=== PATIENT | female | born 1990 | race Caucasian/White ===

== ENCOUNTER 2023-08-27 18:50 | Outpatient (CLI) | payer MEDICAID, SELFPAY ==
[2023-08-27 18:12] LABS: Adenovirus,PCR Not Detected (NotDetected); Coronavirus 19, PCR Not Detected (NotDetected); Coronavirus 229E Not Detected (NotDetected); Coronavirus NL63 Not Detected (NotDetected); Coronavirus OC43 Not Detected (NotDetected); Coronovirus HKU1,PCR Not Detected (NotDetected); Human Metapneumovirus Not Detected (NotDetected); Influenza A, PCR Not Detected (NotDetected); Influenza AH1, 2009 Not Detected (NotDetected); Influenza AH1, PCR Not Detected (NotDetected); Influenza AH3,PCR Not Detected (NotDetected); Influenza B, PCR Not Detected (NotDetected); Parainfluenza 1, PCR Not Detected (NotDetected); Parainfluenza 2, PCR Not Detected (NotDetected); Parainfluenza 3, PCR Not Detected (NotDetected); Parainfluenza 4, PCR Not Detected (NotDetected); Respiratory Syncytial Virus Not Detected (NotDetected)
[2023-08-27 20:13] LABS: Rhinovirus/Enterovirus Detected (NotDetected)
== END 2023-08-27 23:59 ==
LOC: LAB.DROPOF 18:50
PROVIDERS: PCP Nurse Practitioner; Visit Provider Nurse Practitioner
DX: J02.9 Acute pharyngitis, unspecified (principal); J06.9 Acute upper respiratory infection, unspecified; B34.1 Enterovirus infection, unspecified; R05.9 Cough, unspecified
CPT/HCPCS: 87632; 87635

== ENCOUNTER 2023-09-19 10:24 | Outpatient (CLI) | payer MEDICAID, SELFPAY ==
[2023-09-19 12:31] LABS: HCG,Quantitative 140890 mIU/ml (0-5.42)
[2023-09-20 10:17] LABS: Progesterone 14.8 ng/mL (.)
== END 2023-09-19 23:59 | disposition home or self-care (01) ==
LOC: LAB 10:24
PROVIDERS: PCP Family Medicine; Visit Provider Obstetrics & Gynecology
DX: N92.6 Irregular menstruation, unspecified (principal); Z32.00 Encounter for pregnancy test, result unknown
CPT/HCPCS: 36415; 84144; 84702

== ENCOUNTER 2023-09-24 10:58 | Outpatient (CLI) | payer MEDICAID, SELFPAY ==
--- NOTE | 2023-09-24 10:59 | US_ITS ---
PROCEDURE: US OB <= 14 WEEKS FETUS CLINICAL INDICATION: New OB dates/heart tones COMPARISON: No exams were available for comparison FINDINGS: Transvaginal sonographic images of the pelvis were obtained. From her last menstrual period she is 8weeks 1day. An intrauterine gestational sac is present without a pole. This correlates to a gestational age of 8weeks 5days. It measures 4.3 cm x 3.1 cm x 52.4 cm. heart tones are absent. Yolk sac is not seen. There are some small hyperechoic echoes within the fluid. Inferiorly there is a small subchorionic hemorrhage seen. The right ovary is seen and appears normal. It has a polycystic appearance. A corpus luteum is seen within the right ovary. The left ovary is seen and appears normal. It has a polycystic appearance. There is trace fluid in the cul-de-sac. IMPRESSION: 1. Intrauterine gestational sac without a pole or heart rate activity. 2. The sac size is consistent with an 8 week 5 days . 3. There is a small subchorionic inferior hemorrhage. 4. Both ovaries are seen and appear polycystic. A corpus luteum is seen in the right ovary. 5. Trace fluid in the cul-de-sac. Dictated by: Francesco Scott MD 09/24/2023 15:02 Fracnesco Scott MD in [place] 09/24/2023 15:02
[2023-09-24 15:52] LABS: HCG,Quantitative 160940 mIU/ml (0-5.42)
[2023-09-27 09:09] LABS: Neisseria gonorrhoeae, NAA Negative (Negative)
== END 2023-09-24 23:59 | disposition home or self-care (01) ==
LOC: RAD 10:59
PROVIDERS: PCP Nurse Practitioner; Visit Provider Obstetrics & Gynecology
DX: O36.80X0 Pregnancy with inconclusive fetal viability, not applicable or unspecified (principal); O26.891 Other specified pregnancy related conditions, first trimester
CPT/HCPCS: 36415; 76801; 84702; 86850; 87086; 87491; 87591

== ENCOUNTER 2023-09-29 13:51 | Outpatient (CLI) | payer MEDICAID, SELFPAY ==
--- NOTE | 2023-09-29 13:51 | US_ITS ---
PROCEDURE: US OB <= 14 WEEKS FETUS CLINICAL INDICATION: repeat ultrasound for viability/dates COMPARISON: US US OB <= 14 WEEKS FETUS from 09/24/2023 FINDINGS: Transvaginal sonographic images of the pelvis were obtained. From her last menstrual period she is 8weeks 6days. An intrauterine gestational sac is present without a pole. There is hyperechoic debris within the gestational sac. There is a small area of subchorionic hemorrhage. This correlates to a gestational age of 8weeks 4days. heart tones are absent. Yolk sac is absent. The right ovary is seen and appears normal. There appears to be a corpus luteum in the right ovary. The left ovary is seen and appears normal. The left ovary appears polycystic. There is no fluid in the cul-de-sac. IMPRESSION: 1. Likely blighted ovum. No fetus is seen today. 2. There is a gestational sac with internal echoes. 3. A small subchorionic hemorrhage is seen. 4. Both ovaries are seen and appear normal. The left ovary appears polycystic. 5. No fluid in the cul-de-sac. Dictated by: Francesco Scott MD 09/29/2023 21:11 Francesco Scott MD in [place] 09/29/2023 21:11
[2023-09-29 15:45] LABS: Basophils # 0.1 K/mm3 (0-0.2); Basophils % 0.6 % (0.1-2.0); Eosinophils # 0.2 K/mm3 (0.0-0.4); Eosinophils % 1.5 % (0.1-12.0); Hematocrit 38.5 % (37.0-47.0); Hemoglobin 12.5 g/dL (12.2-16.2); Lymphocytes # 2.2 K/mm3 (0.7-4.5); Lymphocytes % 20.3 % (10-50); Mean Corpuscular HGB Conc 32.6 g/dL (31.8-35.4); Mean Corpuscular Hemoglobin 31.2 pg (27.0-31.2); Mean Corpuscular Volume 95.9 fl (81-99); Monocytes # 0.4 K/mm3 (0.1-1.0); Monocytes % 4.2 % (1.7-9.3); Neutrophils # 7.8 K/mm3 (1.8-7.8); Neutrophils % 73.5 % (37.0-80.0); Platelet Count 254 K/mm3 (142-424); Red Blood Count 4.01 M/mm3 (4.20-5.40); Red Cell Distribution Width 13.2 % (11.5-17.5); White Blood Count 10.6 K/mm3 (4.8-10.8)
[2023-09-29 16:29] LABS: Alanine Aminotransferase 18 U/L (12-78); Albumin Level 4.3 g/dl (3.5-5.0); Albumin/Globulin Ratio 1.5 (1.1-1.8); Alkaline Phosphatase 54 U/L (38-126); Anion Gap 9.8 mEq/L (5-15); Aspartate Amino Transferase 28 U/L (14-36); Bilirubin,Total 0.4 mg/dl (0.2-1.3); Blood Urea Nitrogen 7 mg/dl (7-17); Calcium 9.3 mg/dl (8.4-10.2); Carbon Dioxide 25 mmol/L (22.0-30.0); Chloride 105 mmol/L (98-107); Estimated Glomerular Filt Rate 142 ml/min (>60); GFR (African American) 172 ML/MIN (>60); Globulin 2.9 g/dL (1.3-3.2); Glucose 96 mg/dl (74-100); Potassium 3.8 mmoL/L (3.5-5.1); Sodium 136 mmol/L (136-145); Total Protein,Serum 7.2 g/dl (6.3-8.2)
[2023-09-29 17:12] LABS: HCG,Quantitative 139160 mIU/ml (0-5.42)
== END 2023-09-29 23:59 | disposition home or self-care (01) ==
PROVIDERS: PCP Nurse Practitioner; Visit Provider Obstetrics & Gynecology
DX: O36.80X0 Pregnancy with inconclusive fetal viability, not applicable or unspecified (principal); Z3A.09 9 weeks gestation of pregnancy; O02.0 Blighted ovum and nonhydatidiform mole
CPT/HCPCS: 36415; 76801; 80053; 84702; 85025; 86850

== ENCOUNTER 2023-10-02 09:39 | Day surgery (SDC) | payer MEDICAID, SELFPAY ==
[2023-10-02] VITALS (9 sets, daily range): BP systolic 100–156; BP diastolic 54–71; PULSE 50–79; RESP 12–18; TEMP 36.1–36.9; O2SAT 98–100; BMI 26.2
--- NOTE | 2023-10-02 10:07 | P.PNANES_ITS ---
[facility] Disclaimer: The information contained in this section may have been updated after the patient was seen, as this information can be updated by other users. Medical History , location unknown Surgical History History of surgery on arm Family History Other No significant family history Social History Smoking Status: Never smoker alcohol intake: never substance use type: denies use current occupational status: employed and unemployed Travel in the last 8 weeks: None [facility] Anesthesia Checklist Patient Identification Patient Identification: Arm Band Structural Data Admitted From: Home Planned Operative Procedure/s: D&C with Sabine Suction Consent for Planned Operative Procedure(s) Verified: Yes Verified Documents: Surgical Consent and History and Physical NPO Status Verified Time NPO: 00:00 Additional verifications Anesthesia Reactions: No Airway Assessment Mallampati Score:: Class II C-Spine Mobility Assessed: Yes TMJ Mobility Assessed: Yes Dentition: Good Dentition Neurological Assessment Level of Consciousness: Awake and Alert Anesthesia Plan Anesthesia Risk discussed: Yes Anesthesia Plan: Verified ASA Class: II Anesthesia Type: General
[2023-10-02] MEDS: ACETAMINOPHEN 500MG TAB 1000 MG PO (10:12)
[2023-10-02] MEDS: LACTATED RINGERS 1000ML 1,000 ML 25 ML IV (10:12)
--- NOTE | 2023-10-02 11:57 | P.PNANES_ITS ---
[facility] Anesthesia Record Part I Anesthesia Record I Intake, IV Amount: 450 Hydration: Adequate Estimated blood loss (mL): 300 Urine output (mL): 0 Blood Products used (#): none Blood Pressure: 119/63 SaO2: 99 Pulse Rate: 79 Airway Patency: Patent Respiratory Rate: 12 Temperature: 97.0 F Patient is:: Awake (Talking) and Stable Stable to PACU at:: 11:56
--- NOTE | 2023-10-02 11:58 | EXP.OP.NOTE ---
Date of procedure: 10/02/23 Pre-op Diagnosis:: 1. Missed 2. Blighted ovum 3. ABO RH: A positive Post-op Diagnosis:: 1. Missed 2. Blighted ovum 3. ABO RH: A positive Procedure performed:: Suction dilation and curettage Surgeon:: Janee Bowling DO Converting Supervisor(s):: N/a LEAD MILITARY ANALYST:: Norma Nichols Anesthesia: GETA Estimated blood loss (mL): 300 Clinical Note:: Mrs Socorro Alvarado is a 33 yo who presents to [facility] for scheduled proecdure. Initial ob visit ultrasound on 09/24/23 demonstrated intrauterine gestational sac without a pole or heart rate activity. The sac size is consistent with an 8 week 5 days . There is a small subchorionic inferior hemorrhage. Beta hcg quant 09/19/23 was 140,890. Repeat ultrasound 09/29/23 demonstrated likely blighted ovum. No fetus is seen today. There is a gestational sac with internal echoes. A small subchorionic hemorrhage is seen. She denies bleeding and cramping/pain. Repeat beta hcg quant on 09/29/23 was 139,160. Her blood tyle is A positive. Operative findings:: On bimanual exam, uterus normal size and shape, midposition measuring about 8 weeks. No adenxal masses palpated. Grossly normal appearing cervix. Operative note:: Risks, benefits and alternatives were discussed with the patient. Risks include but are not limited to bleeding, infection, uterine perforation and VTE. Patient voiced understanding and agreed to proceed. She was wheeled back to the operating room and placed under general anesthesia without difficulty. She was placed in dorsal lithotomy position and prepped and draped in the normal sterile fashion. Straight catheter was used to drain the bladder. A bimanual exam was performed. A weighted Auvard was placed in the vaginal vault. Single tooth tenaculum was placed on anterior lip of the cervix. Uterus sounded to 9. Sequential Kennedy dilators were used to dilate the cervical os. An 7 mm curved greenlandic suction curettage was advanced into the uterine cavity without difficulty and was used to suction contents of the uterus. Following removal of the products of conception, a medium sized sharp curette was advanced into the uterine cavity and was used to scrape the uterine ramon until a gritty texture was noted. At this time, the suction curette was advanced one more time to suction any remaining products of conception and blood. Instruments were removed from the vagina. Tenaculum site was noted to be hemostatic. Patient was awaken from anesthesia without difficulty. Products of conception will be sent to pathology as well as to an outside lab for chromosomal analysis. She was transported to recovery room in stable condition. Patient will be discharged home when awake and ambulating. She was given Doxycycline 200 mg PO x 1 dose in recovery. She was also given instructions to follow-up in the office in 2 weeks. Condition: stable Disposition: same day Specimens:: Products of conception Complications:: None
[2023-10-02] MEDS: MORPHINE 2MG/ML SYRINGE 2 MG IV ×2 (12:10→12:16)
[2023-10-02] MEDS: DOXYCYCLINE HYCL 100 MG TABLET 200 MG PO (12:19)
--- NOTE | 2023-10-03 13:54 | EXP.ANES.II ---
[facility] Anesthesia Record Part II Anesthesia Record Part II Discharge Time: 12:21 Destination: Surgical Day Care (OP Surgery) PACU nurse assessment reviewed?: Yes Patient Condition:: Good Anesthesia Complications:: None Swallowing reflex intact?: Yes Airway Patency: Patent Cyanosis?: No Blood Pressure: 102/54 SaO2: 100 Respiratory Rate: 17 Pulse Rate: 57 Temperature: 97.0 F Mental Status: Alert & Oriented Pain level:: 3 Nausea and/or vomitting:: None Intake, IV Amount: 450 Hydration: Adequate
[2023-10-03 13:56] VITALS: BP 102/54; PULSE 57; RESP 17; TEMP 36.1; O2SAT 100
== END 2023-10-02 12:49 | disposition home or self-care (01) ==
PROVIDERS: PCP Nurse Practitioner; Visit Provider Obstetrics & Gynecology
PROC: (CPT 59820; principal; 2023-10-02 11:30)
DX: O02.0 Blighted ovum and nonhydatidiform mole (principal); Z67.10 Type A blood, Rh positive
CPT/HCPCS: 59820; J2405

== ENCOUNTER 2023-10-30 10:16 | Outpatient (CLI) | payer MEDICAID, SELFPAY ==
[2023-10-30 11:56] LABS: HCG,Quantitative 766 mIU/ml (0-5.42)
== END 2023-10-30 23:59 | disposition home or self-care (01) ==
LOC: LAB 10:16
PROVIDERS: PCP Nurse Practitioner; Visit Provider Obstetrics & Gynecology
DX: O03.9 Complete or unspecified spontaneous abortion without complication (principal)
CPT/HCPCS: 36415; 84702

== ENCOUNTER 2023-11-01 09:29 | Outpatient (CLI) | payer MEDICAID, SELFPAY ==
[2023-11-01 11:23] LABS: HCG,Quantitative 582 mIU/ml (0-5.42)
== END 2023-11-01 23:59 | disposition home or self-care (01) ==
PROVIDERS: PCP Nurse Practitioner; Visit Provider Obstetrics & Gynecology
DX: Z87.59 Personal history of other complications of pregnancy, childbirth and the puerperium (principal)
CPT/HCPCS: 36415; 84702

== ENCOUNTER 2023-11-11 14:46 | Outpatient (CLI) | payer MEDICAID, SELFPAY ==
[2023-11-11 16:38] LABS: HCG,Quantitative 211 mIU/ml (0-5.42)
== END 2023-11-11 23:59 | disposition home or self-care (01) ==
LOC: LAB 14:47
PROVIDERS: PCP Nurse Practitioner; Visit Provider Obstetrics & Gynecology
DX: O02.0 Blighted ovum and nonhydatidiform mole (principal)
CPT/HCPCS: 36415; 84702

== ENCOUNTER 2023-11-19 10:46 | Outpatient (CLI) | payer MEDICAID, SELFPAY ==
[2023-11-19 11:45] LABS: HCG,Quantitative 105 mIU/ml (0-5.42)
== END 2023-11-19 23:59 | disposition home or self-care (01) ==
LOC: LAB 10:46
PROVIDERS: PCP Nurse Practitioner; Visit Provider Obstetrics & Gynecology
DX: O03.9 Complete or unspecified spontaneous abortion without complication (principal)
CPT/HCPCS: 36415; 84702

== ENCOUNTER 2023-12-02 16:20 | Outpatient (CLI) | payer MEDICAID, SELFPAY ==
[2023-12-02 18:39] LABS: HCG,Quantitative 54 mIU/ml (0-5.42)
== END 2023-12-02 23:59 | disposition home or self-care (01) ==
LOC: LAB 16:21
PROVIDERS: PCP Nurse Practitioner; Visit Provider Obstetrics & Gynecology
DX: O02.0 Blighted ovum and nonhydatidiform mole (principal)
CPT/HCPCS: 36415; 84702

== ENCOUNTER 2023-12-23 14:07 | Outpatient (CLI) | payer MEDICAID, SELFPAY ==
[2023-12-23 14:56] LABS: HCG,Quantitative 29 mIU/ml (0-5.42)
== END 2023-12-23 23:59 | disposition home or self-care (01) ==
PROVIDERS: PCP Nurse Practitioner; Visit Provider Obstetrics & Gynecology
DX: O02.0 Blighted ovum and nonhydatidiform mole (principal)
CPT/HCPCS: 36415; 84702

== ENCOUNTER 2024-01-07 11:07 | Outpatient (CLI) | payer MEDICAID, SELFPAY ==
[2024-01-07 12:18] LABS: HCG,Quantitative 41 mIU/ml (0-5.42)
== END 2024-01-07 23:59 | disposition home or self-care (01) ==
LOC: LAB 11:07
PROVIDERS: PCP Nurse Practitioner; Visit Provider Obstetrics & Gynecology
DX: Z87.59 Personal history of other complications of pregnancy, childbirth and the puerperium (principal)
CPT/HCPCS: 36415; 84702

== ENCOUNTER 2024-01-09 13:31 | Outpatient (CLI) | payer MEDICAID, SELFPAY ==
[2024-01-09 14:46] LABS: HCG,Quantitative 36 mIU/ml (0-5.42)
== END 2024-01-09 23:59 | disposition home or self-care (01) ==
LOC: LAB 13:31
PROVIDERS: PCP Nurse Practitioner; Visit Provider Obstetrics & Gynecology
DX: O03.9 Complete or unspecified spontaneous abortion without complication (principal); Z87.59 Personal history of other complications of pregnancy, childbirth and the puerperium
CPT/HCPCS: 36415; 84702

== ENCOUNTER 2024-01-16 12:30 | Outpatient (CLI) | payer MEDICAID, SELFPAY ==
[2024-01-16 13:56] LABS: HCG,Quantitative 29 mIU/ml (0-5.42)
== END 2024-01-16 23:59 | disposition home or self-care (01) ==
LOC: LAB 12:31
PROVIDERS: PCP Nurse Practitioner; Visit Provider Obstetrics & Gynecology
DX: O03.9 Complete or unspecified spontaneous abortion without complication (principal)
CPT/HCPCS: 36415; 84702

== ENCOUNTER 2024-01-19 13:33 | Outpatient (CLI) | payer MEDICAID, SELFPAY ==
--- NOTE | 2024-01-19 13:36 | US_ITS ---
PROCEDURE: US TRANSVAGINAL CLINICAL INDICATION: AUB COMPARISON: No exams were available for comparison FINDINGS: Transvaginal sonographic images of the pelvis were obtained. UTERUS: 8.0cm x 5.7 cmx 3.4cm anteverted with a combined endometrial thickness of 4.3mm. LEFT OVARY: 3.1cmx1.9 cmx2.4cm with a volume of 7.6ml. There are multiple small peripheral follicles that appear polycystic. RIGHT OVARY: 3.7 cmx 2.0cmx1.8 cm with a volume of 7ml. There are multiple small follicles and appear polycystic. Both ovaries are seen and appear polycystic. Doppler flow to both ovaries are seen. There is no fluid in the cul-de-sac. IMPRESSION: 1. Anteverted uterus normal in shape and size. The endometrium is thin. 2. Both ovaries are seen and appear polycystic. 3. No fluid in the cul-de-sac. Dictated by: Francesco Scott MD 01/19/2024 15:55 Francesco Scott MD in [place] 01/19/2024 15:55
== END 2024-01-19 23:59 | disposition home or self-care (01) ==
LOC: RAD 13:33
PROVIDERS: PCP Nurse Practitioner; Visit Provider Obstetrics & Gynecology
DX: N93.9 Abnormal uterine and vaginal bleeding, unspecified (principal)
CPT/HCPCS: 76830

== ENCOUNTER 2024-03-18 10:12 | Outpatient (CLI) | payer MEDICAID, SELFPAY ==
[2024-03-18 11:56] LABS: HCG,Quantitative 6760 mIU/ml (0-5.42)
[2024-03-19 12:14] LABS: Progesterone 11.9 ng/mL (.)
== END 2024-03-18 23:59 | disposition home or self-care (01) ==
LOC: LAB 10:12
PROVIDERS: PCP Nurse Practitioner; Visit Provider Obstetrics & Gynecology
DX: Z34.90 Encounter for supervision of normal pregnancy, unspecified, unspecified trimester (principal)
CPT/HCPCS: 84144; 84702

== ENCOUNTER 2024-03-23 13:14 | Outpatient (CLI) | payer MEDICAID, SELFPAY ==
[2024-03-23 15:54] LABS: HCG,Quantitative 26267 mIU/ml (0-5.42)
== END 2024-03-23 23:59 | disposition home or self-care (01) ==
LOC: LAB 13:15
PROVIDERS: PCP Nurse Practitioner; Visit Provider Obstetrics & Gynecology
DX: O02.0 Blighted ovum and nonhydatidiform mole (principal)
CPT/HCPCS: 36415; 84702

== ENCOUNTER 2024-03-30 10:43 | Outpatient (CLI) | payer SELFPAY ==
[2024-03-30 11:18] LABS: Basophils % 0.4 % (0.1-2.0); Eosinophils # 0.2 K/mm3 (0.0-0.4); Eosinophils % 1.9 % (0.1-12.0); Hematocrit 37.4 % (37.0-47.0); Hemoglobin 12.9 g/dL (12.2-16.2); Lymphocytes # 1.7 K/mm3 (0.7-4.5); Mean Corpuscular HGB Conc 34.6 g/dL (31.8-35.4); Mean Corpuscular Hemoglobin 31.4 pg (27.0-31.2); Monocytes # 0.5 K/mm3 (0.1-1.0); Neutrophils % 74.7 % (37.0-80.0); Platelet Count 242 K/mm3 (142-424); Red Blood Count 4.11 M/mm3 (4.20-5.40); Red Cell Distribution Width 12.9 % (11.5-17.5); White Blood Count 9.3 K/mm3 (4.8-10.8)
[2024-03-30 13:19] LABS: HIV (1&2) Antibody Rapid NONREACTIVE (NONREACTIVE)
[2024-03-31 09:20] LABS: HCV Ab Non Reactive (Non Reactive); Hepatitis B Surface Antigen Negative (Negative)
[2024-03-31 10:20] LABS: Rubella Antibodies, IgG 2.45 index (Immune >0.99)
[2024-03-31 13:41] LABS: Rapid Plasma Reagin Ab Titer Non Reactive titer (NonRea<1:1)
== END 2024-03-30 23:59 | disposition home or self-care (01) ==
LOC: LAB 10:44
PROVIDERS: PCP Nurse Practitioner; Visit Provider Obstetrics & Gynecology
DX: Z34.90 Encounter for supervision of normal pregnancy, unspecified, unspecified trimester (principal)
CPT/HCPCS: 36415; 85025; 86593; 86762; 86803; 86850; 87086; 87340; 87389

== ENCOUNTER 2024-06-08 12:20 | Outpatient (CLI) | payer MEDICAID, SELFPAY ==
[2024-06-08 12:35] VITALS: BP 127/69; PULSE 93; RESP 18; TEMP 36.9; O2SAT 98; BMI 32.4
== END 2024-06-08 13:40 | disposition home or self-care (01) ==
LOC: OBOUT 12:22 → OB 12:22
PROVIDERS: PCP Nurse Practitioner; Visit Provider Obstetrics & Gynecology
DX: O16.2 Unspecified maternal hypertension, second trimester (principal); Z3A.17 17 weeks gestation of pregnancy; R51.9 Headache, unspecified
CPT/HCPCS: G0463

== ENCOUNTER 2024-06-24 10:30 | Outpatient (CLI) | payer MEDICAID, SELFPAY ==
[2024-06-24 10:51] LABS: Basophils % 0.2 % (0.1-2.0); Eosinophils # 0.1 K/mm3 (0.0-0.4); Eosinophils % 1.1 % (0.1-12.0); Hematocrit 31.9 % (37.0-47.0); Hemoglobin 10.7 g/dL (12.2-16.2); Lymphocytes # 1.8 K/mm3 (0.7-4.5); Lymphocytes % 14.3 % (10-50); Mean Corpuscular HGB Conc 33.5 g/dL (31.8-35.4); Mean Corpuscular Volume 89.4 fl (81-99); Mean Platelet Volume 9.9 fl (7.4-10.4); Monocytes # 0.8 K/mm3 (0.1-1.0); Monocytes % 6.4 % (1.7-9.3); Neutrophils # 9.8 K/mm3 (1.8-7.8); Neutrophils % 77.4 % (37.0-80.0); Platelet Count 228 K/mm3 (142-424); Red Blood Count 3.57 M/mm3 (4.20-5.40); Red Cell Distribution Width 12.5 % (11.5-17.5); White Blood Count 12.7 K/mm3 (4.8-10.8)
[2024-06-24 11:16] LABS: Albumin Level 3.6 g/dl (3.5-5.0); Chloride 104 mmol/L (98-107); Sodium 132 mmol/L (136-145)
[2024-06-24 11:19] LABS: Alanine Aminotransferase 24 U/L (12-78); Aspartate Amino Transferase 29 U/L (14-36); Bilirubin,Unconjugated 0.2 mg/dL (0.0-1.1); Blood Urea Nitrogen 7 mg/dl (7-17); Carbon Dioxide 24 mmol/L (22.0-30.0); Estimated Glomerular Filt Rate 142 ml/min (>60); GFR (African American) 172 ML/MIN (>60); Total Protein,Serum 6.2 g/dl (6.3-8.2)
[2024-06-24 11:20] LABS: Alkaline Phosphatase 75 U/L (38-126); Bilirubin,Indirect 0.2 mg/dL (0.0-0.9); Bilirubin,Total 0.2 mg/dl (0.2-1.3); Calcium 9.7 mg/dl (8.4-10.2); Chol/HDL Ratio 2.8 (1-3.5); Cholesterol 153 mg/dl (140-200); Glucose 81 mg/dl (74-100); HDL Cholesterol 54 mg/dl (40-60); Triglycerides 200 mg/dl (30-150); VLDL Cholesterol 40 mg/dL (0-40)
[2024-06-24 11:31] LABS: Direct LDL Cholesterol 70.62 mg/dL (100-129)
[2024-06-24 11:38] LABS: Free T4 (Free Thyroxine) 0.65 ng/dl (0.78-2.19)
[2024-06-24 11:53] LABS: Thyroid Stimulating Hormone 0.04 uIU/mL (0.465-4.68)
== END 2024-06-24 23:59 | disposition home or self-care (01) ==
PROVIDERS: PCP Nurse Practitioner; Visit Provider Physician Assistant
DX: O13.9 Gestational [pregnancy-induced] hypertension without significant proteinuria, unspecified trimester (principal)
CPT/HCPCS: 36415; 80048; 80061; 80076; 84439; 84443; 85025

== ENCOUNTER 2024-07-01 13:10 | Outpatient (CLI) | payer MEDICAID, SELFPAY ==
--- NOTE | 2024-07-01 13:10 | US_ITS ---
PROCEDURE: US OB >= 14 WEEKS FETUS CLINICAL INDICATION: anatomy scan COMPARISON: US US OB <= 14 WEEKS FETUS from 09/29/2023 US US TRANSVAGINAL from 01/19/2024 FINDINGS: Transabdominal sonographic images of the pelvis were obtained. From her established due date she is 20 weeks 2 days. Single viable intrauterine gestation. Cephalic position. Placenta: Fundalplacenta grade 1. A placental Pack is present. There is an average amount of fluid. The cervix appears satisfactory. Closed and measuring 4.58 cm in length. Complete survey performed and was unremarkable on the submitted images as in PACS. No discrete anomalies identified on survey imaging by technologist. Active fetus. Three-vessel cord with satisfactory umbilical cord insertion. 4- chamber heart noted. Situs, aortic arch, LVOT, RVOT, three-vessel view appear normal. Survey of brain & ventricles Unremarkable. Cerebellum, thalamus, choroid plexus, cisterna magna appear normal. Face and neck survey unremarkable. Profile, nasion, lips and nose appeared normal. Diaphragm and chest views unremarkable. Abdomen: Both kidneys noted and unremarkable. Stomach and bladder noted and satisfactory. Spine: Survey of the spine satisfactory with no anomalies identified nor imaged. Cervical, thoracic, lower spine appear normal. Both arms and legs noted. Amniotic Fluid: Adequate. MVP 5.08 cm Measurements: Average ultrasound age 20weeks 6days. Estimated due date by ultrasound age 0611/12/2024. Estimated weight 359g BPD = 21weeks 4days HC = 20weeks 5days AC = 20weeks 6days FL = 20weeks 0 days Growth Percentile= 59 Heart Rate = 146bpm Cerebellum = 20weeks 6days Humerus = 20weeks 2days HC/AC is 1.17 FL/BPD is 0.63 FL/AC is 0.2 IMPRESSION: 1. Viable fetus within the uterine cavity. heart rate activity is present. 2. The fluid is within normal limits with an MVP 5.08 cm. 3. Somewhat difficult exam due to position. 4. Anatomical scan appears normal. 5. There is a 2 mm intracardiac echogenic focus. Suggest repeat scan at 28 weeks. 6. biometry is consistent with the dates. Dictated by: Francesco Scott MD 07/02/2024 10:33 Francesco Scott MD in [place] 07/02/2024 10:33
== END 2024-07-01 23:59 | disposition home or self-care (01) ==
LOC: RAD 13:10
PROVIDERS: PCP Obstetrics & Gynecology; Visit Provider Obstetrics & Gynecology
DX: Z34.92 Encounter for supervision of normal pregnancy, unspecified, second trimester (principal); Z3A.20 20 weeks gestation of pregnancy; Z87.59 Personal history of other complications of pregnancy, childbirth and the puerperium
CPT/HCPCS: 76805

== ENCOUNTER 2024-07-02 13:08 | Outpatient (CLI) | payer MEDICAID, SELFPAY ==
--- NOTE | 2024-07-02 13:09 | US_ITS ---
FINAL REPORT CLINICAL HISTORY: abnormal tsh COMPARISON: None FINDINGS: THYROID ULTRASOUND: The right lobe of the thyroid measures 4.7 x 1.8 x 2 cm in size. No focal mass or nodule is present in the right lobe of the thyroid gland. The gland is homogeneous in appearance. The left lobe of the thyroid gland measures 4.7 x 1.7 x 1.8 cm in size. There is a single nodule in the lower pole, measuring 1 cm in diameter, solid, hypoechoic, a TI-RADS category 4 nodule. The isthmus of the thyroid measures 2 mm in thickness. IMPRESSION: 1 cm nodule, TI-RADS category 4, and the left lobe of the thyroid gland. Recommend 1 year follow-up thyroid ultrasound for further evaluation. Reviewed, Interpreted and Dictated by Samir Adams MD Transcribed by Sun Soriano Authenticated and [facility]
--- NOTE | 2024-07-02 13:09 | US_ITS ---
FINAL REPORT TECHNIQUE: Ultrasound images of the kidneys and bladder were obtained. CLINICAL HISTORY: R94.31 - Abnormal electrocardiogram ECG EKG COMPARISON: None FINDINGS: The right kidney measures 12.3 cm in length. It is normal in echogenicity. There is no hydronephrosis. The left kidney measures 12.1 cm in length. It is normal in echogenicity. There is no hydronephrosis. There is a small hypoechoic focus present in the left kidney measuring 1.4 cm in size, consistent with a renal cyst. IMPRESSION: 1.4 cm left renal cyst, otherwise unremarkable bilateral renal ultrasound. Reviewed, Interpreted and Dictated by Samir Adams MD Transcribed by Sun Soriano Authenticated and [facility]
--- NOTE | 2024-07-02 13:31 | CA_ITS ---
APPROVED REPORT EXAM: Comprehensive 2D, Doppler, and color-flow Echocardiogram Diplomatic Officer: Safia Kepm CRT Ht: 5 ft 0 in Wt: 192lbs BSA: 1.83 BP: 118/65 mmHg Indications: Abnormal ECG, Hypertension/HDD, 21 weeks , smoker 2D Dimensions LA Volume 41.50 mL LA Volume Index 22.10 mL/m2 (M/F) 16-34 M-Mode Dimensions RVDd 1.86 cm (0.9-2.6) LA Diam 3.73 cm (1.9-4.0) LVDd 5.11 cm (3.5-5.7) LVDs 3.18 cm (3.5-5.7) IVSd 1.30 cm (0.6-1.1) PWd 1.00 cm (0.6-1.1) EF (Teich) 67.60% FS 37.80% EDV (Teich) 124.40 mL TAPSE 1.75 (<1.7) ESV (Teich) 40.30 mL LV Diastology E Decel Time 143 (160-240 msec) E/A Ratio 1.33 MED A' 10.50 cm/s LAT A' 9.20 cm/s Aortic Valve AO Peak GR. 11.10 mmHg Mitral Valve MV E Max Willi. 113.0 (40-130 cm/s) MV A Velocity 85.0 (40-130 cm/s) E/A Ratio 1.33 MV PHT 42.0 ms Pulmonary Valve PV Peak Velocity 114.0 (50-150 cm/s) Tricuspid Valve TR P. Velocity 289.00 cm/s RAP Estimate 10.00 mmHg RVSP 43.50 mmHg Left Ventricle The left ventricle is normal size. The left ventricular systolic function is normal. The left ventricular ejection fraction is within the normal range. There is normal left ventricular wall thickness. There is normal LV segmental wall motion. The left ventricular diastolic function is normal. LVEF is 55%. Right Ventricle Right ventricle is mildly dilated. The right ventricular systolic function is normal. Atria The left atrium is mildly dilated. The right atrium is mildly dilated. There is no Doppler evidence of interatrial shunt. Aortic Valve The aortic valve is normal in structure. There is no aortic valvular stenosis. No aortic regurgitation is present. Mitral Valve The mitral valve is normal in structure. No evidence of mitral valve stenosis. Trace mitral regurgitation. Tricuspid Valve Tricuspid valve is grossly normal in structure and function. Trace tricuspid regurgitation. There is insufficient TR jet to estimate RVSP. Pulmonic Valve The pulmonary valve is normal in structure. Trace pulmonic regurgitation. Great Vessels The aortic root is normal in size. The ascending aorta is normal in size. IVC is normal in size and collapses >50% with inspiration. Pericardium There is no pericardial effusion. Other Information Study Quality: Fair Conclusion Normal biventricular systolic function. Mild RV dilation. Mild biatrial dilation. No significant valvular stenosis or regurgitation. Electronically signed by : Hyun Oswald MD 07/10/2024 23:47:43
== END 2024-07-02 23:59 | disposition home or self-care (01) ==
LOC: RAD 13:09
PROVIDERS: PCP Nurse Practitioner; Visit Provider Physician Assistant
DX: O13.9 Gestational [pregnancy-induced] hypertension without significant proteinuria, unspecified trimester (principal); R79.89 Other specified abnormal findings of blood chemistry; R94.31 Abnormal electrocardiogram [ECG] [EKG]
CPT/HCPCS: 76536; 76770; 93306

== ENCOUNTER 2024-08-17 12:22 | Outpatient (CLI) | payer MEDICAID, SELFPAY ==
[2024-08-17 12:38] VITALS: BMI 36.5
[2024-08-17 13:07] LABS: Basophils % 0.1 % (0.1-2.0); Eosinophils % 0.2 % (0.1-12.0); Hematocrit 30.8 % (37.0-47.0); Hemoglobin 10.5 g/dL (12.2-16.2); Lymphocytes # 0.5 K/mm3 (0.7-4.5); Lymphocytes % 3.9 % (10-50); Mean Corpuscular HGB Conc 34.1 g/dL (31.8-35.4); Mean Corpuscular Hemoglobin 30.6 pg (27.0-31.2); Mean Corpuscular Volume 89.8 fl (81-99); Mean Platelet Volume 9.8 fl (7.4-10.4); Monocytes # 0.3 K/mm3 (0.1-1.0); Monocytes % 2.3 % (1.7-9.3); Neutrophils # 11.1 K/mm3 (1.8-7.8); Neutrophils % 92.7 % (37.0-80.0); Platelet Count 235 K/mm3 (142-424); Red Blood Count 3.43 M/mm3 (4.20-5.40); Red Cell Distribution Width 13.4 % (11.5-17.5)
[2024-08-17 13:08] LABS: MANUAL DIFFERENTIAL MANUAL DIFFERENTIAL (MANUAL DIFF)
--- NOTE | 2024-08-17 13:10 | US_ITS ---
PROCEDURE: US OB FOLLOW UP CLINICAL INDICATION: abdominal trauma COMPARISON: US US OB >= 14 WEEKS FETUS from 07/01/2024 FINDINGS: Transabdominal sonographic images of the pelvis were obtained. The following parameters are obtained: From her established due date she is 27weeks 27 weeks 0 days Viable fetus in the breech presentation with a fundal placenta grade 1. The cervix measures 3.28 cm. heart rate: 153bpm bpm. Amniotic fluid: MVP 5.21 cm. No obvious anomalies evident. profile seen, spine, kidneys, three-vessel cord, lips and nose, four chamber heart appear normal. The small echogenic foci is still seen within the left ventricle of the heart. Cardiac views otherwise appear normal. IMPRESSION: 1. Viable fetus in the breech presentation with a fundal placenta grade 1. 2. The fluid is within normal limits with an MVP 5.21 cm. 3. Careful scanning of the fundal placenta does not reveal any evidence of abruption. Fetus is active. 4. Limited anatomical scan appears normal. 5. There continues to be a small intracardiac echogenic foci in the left ventricle. Dictated by: Francesco Scott MD 08/17/2024 14:57 Francesco Scott MD in [place] 08/17/2024 14:57
[2024-08-17 13:23] LABS: Alanine Aminotransferase 20 U/L (12-78); Albumin Level 3.7 g/dl (3.5-5.0); Albumin/Globulin Ratio 1.4 (1.1-1.8); Alkaline Phosphatase 96 U/L (38-126); Amylase 56 U/L (30-110); Anion Gap 10.4 mEq/L (5-15); Aspartate Amino Transferase 24 U/L (14-36); Bilirubin,Total 0.3 mg/dl (0.2-1.3); Blood Urea Nitrogen 9 mg/dl (7-17); Calcium 8.5 mg/dl (8.4-10.2); Carbon Dioxide 21 mmol/L (22.0-30.0); Chloride 108 mmol/L (98-107); Creatinine Clearance Estimated 295 mL/min (50-200); Estimated Glomerular Filt Rate 184 ml/min (>60); GFR (African American) 222 ML/MIN (>60); Globulin 2.7 g/dL (1.3-3.2); Glucose 109 mg/dl (74-100); Lipase 51 U/L (23-300); Potassium 3.4 mmoL/L (3.5-5.1); Sodium 136 mmol/L (136-145); Total Protein,Serum 6.4 g/dl (6.3-8.2)
[2024-08-17] MEDS: ONDANSETRON 4MG/2ML VIAL 4 MG IV (13:30)
[2024-08-17] MEDS: LACTATED RINGERS 1000ML 1,000 ML 999 ML IV (13:30)
[2024-08-17 13:31] VITALS: BMI 36.5
[2024-08-17 13:35] LABS: Lymphocytes % 4 % (10-50); Monocytes % 3 % (2-9); Neutrophils % 93 % (42-76); Total Cells Counted 100
[2024-08-17 13:36] LABS: Platelet Estimate Normal; RBC Morphology Normal
== END 2024-08-17 14:53 | disposition home or self-care (01) ==
LOC: OBOUT 12:23 → OB 12:24
PROVIDERS: Obstetrics & Gynecology; PCP Nurse Practitioner; Visit Provider Obstetrics & Gynecology
DX: Z04.3 Encounter for examination and observation following other accident (principal); Z3A.27 27 weeks gestation of pregnancy
CPT/HCPCS: 76816; 80053; 82150; 83690; 85007; 85025; 85027; G0463; J2405; J7120

== ENCOUNTER 2024-08-30 09:12 | Outpatient (CLI) | payer MEDICAID, SELFPAY ==
--- NOTE | 2024-08-30 09:12 | US_ITS ---
PROCEDURE: US OB FOLLOW UP CLINICAL INDICATION: 2 mm intracardiac echogenic focus, growth TRELL COMPARISON: US US TRANSVAGINAL from 01/19/2024 US US OB >= 14 WEEKS FETUS from 07/01/2024 US US OB FOLLOW UP from 08/17/2024 FINDINGS: Transabdominal sonographic images of the pelvis were obtained. The following parameters are obtained: From her established due date she is 30 weeks 1 day Viable fetus in the breech presentation with a posterior placenta grade 1. The cervix measures 3.3 cm. Estimated weight 1381 grams, 3 lb 1 oz Average ultrasound age 29 weeks 3 days heart rate: 143bpm bpm. BPD: 29 weeks 0 days, 9 percentile HC: 30 weeks 2 days, 18 percentile AC: 30 weeks 2 days, 49 percentile FL: 27 weeks 5 days, < 2 percentile HC/AC: 1.06 FL/BPD: 0.72 FL/AC: 0.2 Growth percentile: 15 Amniotic fluid index: 12.29cm, MVP 3.76 cm. No obvious anomalies evident. profile seen, stomach, bladder, kidneys, three-vessel cord, four chamber heart appear normal. There continues to be a small intracardiac echogenic foci within the left ventricle. It has not increased in size. IMPRESSION: 1. Viable fetus in the breech presentation with a posterior placenta grade 1. 2. The fluid is within normal limits with an amniotic fluid index 12.29 cm, MVP 3.76 cm. 3. There has been good interval growth with the fetus currently 15th percentile. The femur length is over 2 weeks behind. 4. Limited anatomical scan appears normal. 5. There continues to be a small intracardiac echogenic foci in the left ventricle that has not increased in size. Dictated by: Francesco Scott MD 08/30/2024 11:21 Francesco Scott MD in [place] 08/30/2024 11:21
[2024-08-30 11:22] LABS: Basophils % 0.2 % (0.1-2.0); Eosinophils # 0.1 K/mm3 (0.0-0.4); Eosinophils % 0.8 % (0.1-12.0); Hematocrit 29.7 % (37.0-47.0); Lymphocytes # 1.6 K/mm3 (0.7-4.5); Lymphocytes % 11.9 % (10-50); Mean Corpuscular HGB Conc 33.7 g/dL (31.8-35.4); Mean Corpuscular Hemoglobin 30.6 pg (27.0-31.2); Mean Corpuscular Volume 90.8 fl (81-99); Monocytes # 0.6 K/mm3 (0.1-1.0); Monocytes % 4.3 % (1.7-9.3); Neutrophils # 10.9 K/mm3 (1.8-7.8); Neutrophils % 81.7 % (37.0-80.0); Platelet Count 259 K/mm3 (142-424); Red Blood Count 3.27 M/mm3 (4.20-5.40); Red Cell Distribution Width 13.1 % (11.5-17.5); White Blood Count 13.3 K/mm3 (4.8-10.8)
[2024-08-30 11:34] LABS: Glucose 1 Hour 155 mg/dL (74-100)
[2024-08-30 12:09] LABS: Free Thyroxine Index 2.4 ug/dL (5.93-13.13); T4 (Thyroxine) 13.2 ug/dl (5.53-11.0); Triiodothryronine (T3) Uptake 18 % (23.5-40.5)
[2024-08-30 12:22] LABS: Thyroid Stimulating Hormone 0.13 uIU/mL (0.465-4.68)
[2024-08-31 09:42] LABS: RPR W/RFX Titers Nonreactive (Nonreactive)
== END 2024-08-30 23:59 | disposition home or self-care (01) ==
PROVIDERS: PCP Nurse Practitioner; Visit Provider Obstetrics & Gynecology
DX: O13.3 Gestational [pregnancy-induced] hypertension without significant proteinuria, third trimester (principal); O28.3 Abnormal ultrasonic finding on antenatal screening of mother; R79.89 Other specified abnormal findings of blood chemistry; Z3A.30 30 weeks gestation of pregnancy
CPT/HCPCS: 36415; 76816; 82947; 84436; 84443; 84479; 85025; 86592

== ENCOUNTER 2024-09-15 08:27 | Outpatient (CLI) | payer MEDICAID, SELFPAY ==
[2024-09-15 09:03] LABS: Glucose,Fasting 97 mg/dl (74-100)
[2024-09-15 12:44] LABS: Glucose 1 Hour 161 mg/dL (74-100); Glucose 2 Hour 93 mg/dL (74-100)
[2024-09-15 12:45] LABS: Glucose 3 Hour 84 mg/dL (74-100)
== END 2024-09-15 23:59 | disposition home or self-care (01) ==
PROVIDERS: PCP Nurse Practitioner; Visit Provider Obstetrics & Gynecology
DX: E74.39 Other disorders of intestinal carbohydrate absorption (principal)
CPT/HCPCS: 36415; 82951

== ENCOUNTER 2024-09-27 14:35 | Outpatient (CLI) | payer MEDICAID, SELFPAY ==
--- NOTE | 2024-09-27 15:00 | US_ITS ---
PROCEDURE: US OB BIOPHYSICAL PROFILE CLINICAL INDICATION: SGA COMPARISON: US US TRANSVAGINAL from 01/19/2024 US US OB >= 14 WEEKS FETUS from 07/01/2024 US US OB FOLLOW UP from 08/17/2024 US US OB FOLLOW UP from 08/30/2024 FINDINGS: Transabdominal sonographic images of the uterus were obtained. From her established due date she is 34weeks 1day. The following parameters are obtained: Viable Fetus in the breech presentation with a posterior placenta grade 2. Average ultrasound age is 33weeks 4days Estimated weight 2,151g, 4 lb 12 oz The cervix measures 2.09-2.64 cm transvaginally. There is no funneling with Valsalva. Measurements: heart Rate = 130bpm BPD = 33weeks 2days, 23 percentile HC = 34weeks 5days, 27 percentile AC = 33weeks 1day, 23 percentile FL = 33weeks 1day, 16 percentile HC/AC is 1.07 FL/BPD is 0.78 FL/AC is 0.22 20 percentile Amniotic fluid index: 11.25cm, MVP 3.68 cm Qualitative AFV:2 Breathing movements: 2 Gross Body Movements: 2 Tone: 2 Biophysical profile score: 8 Doppler evaluation of the umbilical artery: SD ratio: 2.75-3.2 Resistive index: 0.69 No obvious anomalies evident.Kidneys, profile, stomach, bladder, four-chamber heart, three-vessel cord appear normal. There continues to be a small echogenic foci within the left ventricle. IMPRESSION: 1. Viable fetus in the BREECH presentation with a posterior placenta grade 2. 2. The fluid is within normal limits with an amniotic fluid index 11.25 cm, MVP 3.68 cm. 3. Biophysical profile is 8/8 with good breathing movement and movement seen. 4. SD ratio is normal 2.75-3.20. 5. There has been good interval growth with the fetus currently 20th percentile. 6. There continues to be a small intracardiac echogenic foci within the left ventricle of the heart. 7. The rest of the limited anatomical scan appears normal. Dictated by: Francesco Scott MD 09/27/2024 18:13 Francesco Scott MD in [place] 09/27/2024 18:13
== END 2024-09-27 23:59 | disposition home or self-care (01) ==
LOC: RAD 14:36
PROVIDERS: PCP Nurse Practitioner; Visit Provider Obstetrics & Gynecology
DX: O36.5930 Maternal care for other known or suspected poor fetal growth, third trimester, not applicable or unspecified (principal); Z87.59 Personal history of other complications of pregnancy, childbirth and the puerperium; Z3A.34 34 weeks gestation of pregnancy
CPT/HCPCS: 76816; 76819; 76820

== ENCOUNTER 2024-10-12 15:41 | Outpatient (CLI) | payer MEDICAID, SELFPAY ==
[2024-10-12 15:50] VITALS: BMI 38.0
[2024-10-12 16:02] VITALS: BP 135/72; PULSE 90; RESP 17; TEMP 36.7; O2SAT 99; BMI 38.0
[2024-10-12 16:14] LABS: Microscopic, Urine URINE MICROSCOPIC (MICROSCOPIC)
[2024-10-12 16:17] LABS: Appearance,Urine CLEAR (Clear); Bilirubin,Urine Negative (Negative); Blood, Urine Negative (Negative); Color,Urine YELLOW (Yellow); Glucose,Urine (UA) Negative (Negative); Ketones,Urine Negative (Negative); Leukocyte Esterase,Urine TRACE (Negative); Nitrate,Urine Negative (Negative); Protein,Urine Negative (Negative); Specific Gravity, Urine 1.015 (1.005-1.030); Urobilinogen,Urine 0.2 EU/dl (0.2)
--- NOTE | 2024-10-12 16:17 | US_ITS ---
PROCEDURE INFORMATION: Exam: US , Limited Exam date and time: 10/12/2024 4:23 PM Age: 34 years old Clinical indication: Other: Dec movement, back pain; ; Additional info: Decreased movement, positioning LABS AND CLINICAL REPORTS: Gestational age (Established): 36 w 2 d Estimated due date (Established): 11/07/2024 TECHNIQUE: Imaging protocol: Real-time ultrasound of the maternal uterus with image documentation. Exam focused on the clinical indication. COMPARISON: US OB BIOPHYSICAL PROFILE 09/27/2024 2:44 PM FINDINGS: Gestation: Single intrauterine gestation. heart rate: 136 bpm presentation and position: Breech. Placenta: Fundal location. Grade 2. No retroplacental hemorrhage. Amniotic fluid index: 10.74 cm. MATERNAL: Cervix: Measures 2.79 cm in length. IMPRESSION: Single live intrauterine gestation in breech presentation. PROCEDURE INFORMATION: Exam: US Biophysical Profile Without Non-Stress Test Exam date and time: 10/12/2024 4:23 PM Age: 34 years old Clinical indication: Other: Dec movement, back pain; ; Additional info: Decreased movement, positioning TECHNIQUE: Imaging protocol: US biophysical profile without non-stress testing. COMPARISON: US OB BIOPHYSICAL PROFILE 09/27/2024 2:44 PM FINDINGS: BIOPHYSICAL PROFILE: breathing (BPP): 2 out of 2. gross body movement (BPP): 0 out of 2. tone (BPP): 2 out of 2. Amniotic fluid (BPP): 2 out of 2. IMPRESSION: Biophysical profile score is 6 out of 8 with abnormal scoring of gross body movement, in which only 1 episode was detected.
[2024-10-12 16:52] LABS: Bacteria,Urine 4+ /lpf; Squamous Epithelial Cell,Urine 50-100 #/hpf (0-5)
[2024-10-12] MEDS: LACTATED RINGERS 1000ML 1,000 ML 999 ML IV (20:58)
[2024-10-12] MEDS: AZITHROMYCIN 250MG TABLET 1000 MG PO (23:00)
== END 2024-10-12 23:34 | disposition home or self-care (01) ==
LOC: OBOUT 15:42 → OB 15:43
PROVIDERS: PCP Nurse Practitioner; Visit Provider Obstetrics & Gynecology
DX: O99.891 Other specified diseases and conditions complicating pregnancy (principal); M54.50 Low back pain, unspecified; Z3A.35 35 weeks gestation of pregnancy
CPT/HCPCS: 76819; 81001; 86403; 87086; G0463; J7120

== ENCOUNTER 2024-10-13 12:55 | Outpatient (CLI) | payer MEDICAID, SELFPAY ==
--- NOTE | 2024-10-13 12:30 | US_ITS ---
PROCEDURE: US OB BIOPHYSICAL PROFILE CLINICAL INDICATION: Needs ALLAN for SGA COMPARISON: US US OB >= 14 WEEKS FETUS from 07/01/2024 US US OB FOLLOW UP from 08/17/2024 US OB FOLLOW UP from 08/30/2024 US OB BIOPHYSICAL PROFILE from 09/27/2024 US OB BPP W/FET-MAT S/D from 10/12/2024 FINDINGS: Transabdominal sonographic images of the uterus were obtained. From her established due date she is 36weeks 3days. The following parameters are obtained: Viable Fetus in the breech presentation with right lateral placenta grade 2. The cervix measures 2.44 cm Measurements: heart Rate = 146bpm Amniotic fluid index: 15.73cm, MVP 5.29 cm Qualitative AFV:2 Breathing movements: 2 Gross Body Movements: 2 Tone: 2 Biophysical profile score: 8 No obvious anomalies evident.Kidneys, bladder, stomach, four-chamber heart, three-vessel cord appear normal. IMPRESSION: 1. Viable fetus in the BREECH presentation with a right lateral placenta grade 2. 2. The fluid is within normal limits with an amniotic fluid index 15.73 cm, MVP 5.29 cm. 3. Biophysical profile is 8/8 with good breathing movement and movement seen. 4. Limited anatomical scan appears normal. Dictated by: Francesco Scott MD 10/13/2024 15:28 Francesoc Scott MD in [place] 10/13/2024 15:28
== END 2024-10-13 23:59 | disposition home or self-care (01) ==
LOC: RAD 12:56
PROVIDERS: PCP Obstetrics & Gynecology; Visit Provider Obstetrics & Gynecology
DX: O32.1XX0 Maternal care for breech presentation, not applicable or unspecified (principal); O36.5930 Maternal care for other known or suspected poor fetal growth, third trimester, not applicable or unspecified; O99.013 Anemia complicating pregnancy, third trimester; Z3A.36 36 weeks gestation of pregnancy
CPT/HCPCS: 76819

== ENCOUNTER 2024-10-18 12:23 | Outpatient (CLI) | payer MEDICAID, SELFPAY ==
[2024-10-18 12:33] VITALS: BMI 38.0
[2024-10-18] MEDS: LACTATED RINGERS 1000ML 1,000 ML 999 ML IV (13:01)
[2024-10-18 13:09] VITALS: BMI 38.0
[2024-10-18 13:16] LABS: Microscopic, Urine URINE MICROSCOPIC (MICROSCOPIC)
[2024-10-18 13:18] LABS: Basophils % 0.3 % (0.1-2.0); Eosinophils # 0.1 Kmm3 (0.0-0.4); Eosinophils % 1.2 % (0.1-12.0); Hematocrit 30.2 % (37.0-47.0); Hemoglobin 10.2 g/dL (12.2-16.2); Immature Granulocytes # 0.11 10^3uL; Lymphocytes % 17.3 % (10-50); Mean Corpuscular HGB Conc 33.8 g/dL (31.8-35.4); Mean Corpuscular Hemoglobin 30.4 pg (27.0-31.2); Mean Corpuscular Volume 90.1 fl (81-99); Monocytes # 0.9 K/mm3 (0.1-1.0); Monocytes % 7.5 % (1.7-9.3); Neutrophils # 8.4 K/mm3 (1.8-7.8); Neutrophils % 72.7 % (37.0-80.0); Nucleated Red Blood Cells # 0 10^3/uL; Nucleated Red Blood Cells % 0 %; Platelet Count 212 K/mm3 (142-424); Red Blood Count 3.35 M/mm3 (4.20-5.40); Red Cell Distribution Width 13.3 % (11.5-17.5); Red Cell Distribution Width-SD 44.3 fL; White Blood Count 11.5 K/mm3 (4.8-10.8)
[2024-10-18 13:23] VITALS: BP 123/78; PULSE 84; RESP 18; TEMP 37.2; O2SAT 99
[2024-10-18 13:29] LABS: Chloride 109 mmol/L (98-107)
[2024-10-18 13:30] LABS: Appearance,Urine CLEAR (Clear); Bilirubin,Urine Negative (Negative); Blood, Urine Negative (Negative); Color,Urine YELLOW (Yellow); Glucose,Urine (UA) Negative (Negative); Ketones,Urine Negative (Negative); Leukocyte Esterase,Urine TRACE (Negative); Nitrate,Urine Negative (Negative); Protein,Urine Negative (Negative); Urobilinogen,Urine 0.2 EU/dl (0.2)
[2024-10-18 13:30] LABS: Albumin Level 3.2 g/dl (3.5-5.0); Potassium 3.4 mmoL/L (3.5-5.1); Sodium 135 mmol/L (136-145)
[2024-10-18 13:32] LABS: Alanine Aminotransferase 15 U/L (12-78); Anion Gap 5.4 mEq/L (5-15); Aspartate Amino Transferase 23 U/L (14-36); Blood Urea Nitrogen 4 mg/dl (7-17); Carbon Dioxide 24 mmol/L (22.0-30.0); Creatinine Clearance Estimated 244 mL/min (50-200); Estimated Glomerular Filt Rate 141 ml/min (>60); GFR (African American) 171 ML/MIN (>60)
[2024-10-18 13:33] LABS: Albumin/Globulin Ratio 1.1 (1.1-1.8); Alkaline Phosphatase 98 U/L (38-126); Calcium 9.1 mg/dl (8.4-10.2); Globulin 2.8 g/dL (1.3-3.2); Glucose 91 mg/dl (74-100)
[2024-10-18 13:35] LABS: Bilirubin,Total 0.1 mg/dl (0.2-1.3)
[2024-10-18 14:15] LABS: Bacteria,Urine Trace /lpf; Squamous Epithelial Cell,Urine 20-50 #/hpf (0-5)
== END 2024-10-18 14:07 | disposition home or self-care (01) ==
LOC: OBOUT 12:24 → OB 12:25
PROVIDERS: PCP Nurse Practitioner; Visit Provider Obstetrics & Gynecology
DX: O36.8330 Maternal care for abnormalities of the fetal heart rate or rhythm, third trimester, not applicable or unspecified (principal); Z3A.35 35 weeks gestation of pregnancy
CPT/HCPCS: 36415; 80053; 81001; 85025; G0463; J7120

== ENCOUNTER 2024-11-01 17:53 | Outpatient (CLI) | payer MEDICAID, SELFPAY ==
[2024-11-01 18:14] VITALS: BP 143/93; PULSE 92; RESP 18; TEMP 36.7; O2SAT 100; BMI 39.3
[2024-11-01] MEDS: LACTATED RINGERS 1000ML 1,000 ML 999 ML IV (18:49)
[2024-11-01] MEDS: LABETALOL 100MG TABLET 200 MG PO (18:50)
[2024-11-01 18:52] LABS: Microscopic, Urine URINE MICROSCOPIC (MICROSCOPIC)
[2024-11-01 18:54] LABS: Basophils % 0.2 % (0.1-2.0); Eosinophils # 0.1 Kmm3 (0.0-0.4); Eosinophils % 1.3 % (0.1-12.0); Hematocrit 27.7 % (37.0-47.0); Hemoglobin 9.4 g/dL (12.2-16.2); Immature Granulocytes # 0.09 10^3uL; Immature Granulocytes % 0.9 %; Lymphocytes # 1.6 K/mm3 (0.7-4.5); Lymphocytes % 16.3 % (10-50); Mean Corpuscular HGB Conc 33.9 g/dL (31.8-35.4); Mean Corpuscular Hemoglobin 30.6 pg (27.0-31.2); Mean Corpuscular Volume 90.2 fl (81-99); Mean Platelet Volume 9.8 fl (7.4-10.4); Monocytes # 0.7 K/mm3 (0.1-1.0); Monocytes % 7.3 % (1.7-9.3); Neutrophils # 7.1 K/mm3 (1.8-7.8); Nucleated Red Blood Cells # 0 10^3/uL; Nucleated Red Blood Cells % 0 %; Platelet Count 222 K/mm3 (142-424); Red Blood Count 3.07 M/mm3 (4.20-5.40); Red Cell Distribution Width 13.2 % (11.5-17.5); Red Cell Distribution Width-SD 43.8 fL; White Blood Count 9.6 K/mm3 (4.8-10.8)
[2024-11-01 18:58] LABS: Bilirubin,Urine Negative (Negative); Blood, Urine TRACE-I (Negative); Color,Urine YELLOW (Yellow); Glucose,Urine (UA) Negative (Negative); Ketones,Urine Negative (Negative); Leukocyte Esterase,Urine 2+ (Negative); Nitrate,Urine Negative (Negative); PH,Urine 7.5 (5.0-8.5); Protein,Urine Negative (Negative); Specific Gravity, Urine 1.015 (1.005-1.030); Urobilinogen,Urine 0.2 EU/dl (0.2)
[2024-11-01 19:00] LABS: Appearance,Urine Slightly Cloudy (Clear)
[2024-11-01 19:04] LABS: Activated Partial Thrombo Time 24.5 seconds (22.8-30.6); Fibrinogen 486 mg/dL (229.9-363.5); Prothrombin Time 10.1 seconds (10.1-12.5)
[2024-11-01 19:09] LABS: Alanine Aminotransferase 28 U/L (12-78); Anion Gap 7.7 mEq/L (5-15); Aspartate Amino Transferase 33 U/L (14-36); Blood Urea Nitrogen 4 mg/dl (7-17); Calcium 8.6 mg/dl (8.4-10.2); Carbon Dioxide 25 mmol/L (22.0-30.0); Chloride 108 mmol/L (98-107); Creatinine Clearance Estimated 252 mL/min (50-200); Estimated Glomerular Filt Rate 141 ml/min (>60); GFR (African American) 171 ML/MIN (>60); Glucose 90 mg/dl (74-100); Potassium 3.7 mmoL/L (3.5-5.1); Sodium 137 mmol/L (136-145); Uric Acid 3.6 mg/dl (2.5-6.2)
[2024-11-01 19:24] LABS: Bacteria,Urine 1+ /lpf; Squamous Epithelial Cell,Urine 20-50 #/hpf (0-5)
[2024-11-01] MEDS: ACETAMINOPHEN 500MG TAB 1000 MG PO (19:30)
== END 2024-11-01 20:45 | disposition home or self-care (01) ==
LOC: OBOUT 17:55 → OB 17:55
PROVIDERS: PCP Nurse Practitioner; Visit Provider Nurse Practitioner Obstetrics & Gynecology
DX: Z34.03 Encounter for supervision of normal first pregnancy, third trimester (principal); Z3A.37 37 weeks gestation of pregnancy
CPT/HCPCS: 59025; 80048; 81001; 84450; 84460; 84550; 85025; 85384; 85610; 85730; 87086; 96360; J7120

== ENCOUNTER 2024-11-02 12:17 | Inpatient (IN) | payer MEDICAID, SELFPAY ==
[2024-11-02] VITALS (8 sets, daily range): BP systolic 106–148; BP diastolic 63–76; PULSE 67–88; RESP 16–20; TEMP 36.5–36.8; O2SAT 99–100; BMI 39.3
[2024-11-02 13:28] LABS: Basophils % 0.2 % (0.1-2.0); Eosinophils # 0.1 Kmm3 (0.0-0.4); Eosinophils % 0.9 % (0.1-12.0); Hematocrit 28.9 % (37.0-47.0); Hemoglobin 9.5 g/dL (12.2-16.2); Immature Granulocytes # 0.13 10^3uL; Immature Granulocytes % 1.1 %; Lymphocytes # 1.4 K/mm3 (0.7-4.5); Lymphocytes % 12.3 % (10-50); Mean Corpuscular HGB Conc 32.9 g/dL (31.8-35.4); Mean Corpuscular Hemoglobin 29.5 pg (27.0-31.2); Mean Corpuscular Volume 89.8 fl (81-99); Mean Platelet Volume 10.1 fl (7.4-10.4); Monocytes # 0.8 K/mm3 (0.1-1.0); Monocytes % 6.9 % (1.7-9.3); Neutrophils # 9.2 K/mm3 (1.8-7.8); Neutrophils % 78.6 % (37.0-80.0); Nucleated Red Blood Cells # 0 10^3/uL; Nucleated Red Blood Cells % 0 %; Platelet Count 219 K/mm3 (142-424); Red Blood Count 3.22 M/mm3 (4.20-5.40); Red Cell Distribution Width 13.2 % (11.5-17.5); Red Cell Distribution Width-SD 43.9 fL; White Blood Count 11.7 K/mm3 (4.8-10.8)
[2024-11-02] MEDS: LACTATED RINGERS 1000ML 1,000 ML 250 ML IV (14:13)
[2024-11-02] MEDS: CITRIC ACID/SODIUM CITRATE ORAL SOLN 30ML UDC 30 ML PO (15:33)
[2024-11-02] MEDS: CEFAZOLIN SODIUM 2 GM in 0.9 % SODIUM CHLORIDE 100 ML IV (15:33)
--- NOTE | 2024-11-02 15:55 | P.HP_ITS ---
History of Present Illness *Admission Date: 11/02/24 *Reason for visit:: elevated BP *History of present illness: Socorro Barker 34yo who presented to L&D for elevated BP. She has an ELISABETH of 11/16/24, based on first trimester US, giving her a gestational age of 38w0d. Per pt BP in the 170/100s in triage yesterday. She was recently diagnosed with gestational hypertension. Reports a persistent headache for the last 2 days, started at 8pm on 01/31/25. She was evaluated in L&D triage last night and given PO labetalol which her BP initially responded well to but given persistent elevations and the diagnosis of GHTN decision was made to proceed with delivery. Pt reports at home prior to arrival BP 150/90s. She took her labetalol and Infant is breech and pt declined ECV so she was counseled on a primary CD. relatively uncomplicated until this point, EIF noted on anatomy scan. A+, antibody negative, rubella immune, hepatitis B negative, hepatitis C negative, RPR negative, HIV negative 1 hour GTT: 155 3-hour GTT: 97/161/93/84 GBS negative [facility] Disclaimer: The information contained in this section may have been updated after the patient was seen, as this information can be updated by other users. Medical History Breech presentation Anemia affecting SGA (small for gestational age), , affecting care of mother, antepartum Vomiting affecting Abdominal pain in , antepartum echogenic intracardiac focus on ultrasound Abnormal TSH Abnormal electrocardiogram [ECG] [EKG] Headache Labile blood pressure Constipation during Nausea and vomiting during History of miscarriage x 1 Surgical History History of surgery on arm Family History Other No significant family history Social History Smoking Status: Current some day smoker alcohol intake: never substance use type: denies use current occupational status: employed Travel in the last 8 weeks?: None Have you lived/traveled outside US in past 30 days?: No Contact w/someone who lives/traveled outside US past 30 days?: No Exposure to someone with infectious disease in past 14 days?: No Do you have a fever (greater than 100.4 F or 38 C)?: No Have you tested positive for COVID-19?: No Exposed to someone with COVID-19 in past 14 days?: No Do you have a sore throat?: No Do you have a cough?: No Do you have any weakness?: No Do you have any diarrhea?: No Are you experiencing any unusual bleeding?: No Do you have any muscle aches/pain?: No Do you have any abdominal pain?: No Are you experiencing loss of taste or smell?: No Other Medical History Have you received the Flu Vaccine for this season: No Have you received the Pneumonia Vaccine: No Review of Systems Review of Systems Review of systems (narrative): Review of Systems Constitutional: Denies fever, chills, and sweats. Endorses headache Eyes: Denies vision change/ pain Respiratory: Denies cough and shortness of breath Cardiovascular: Denies chest pain and lightheadedness Gastrointestinal: Denies abdominal pain. Denies nausea, vomiting. Genitourinary: Denies dysuria and incontinence Musculoskeletal: Denies shoulder pain and back pain Meds Home Medications and Allergies Home Medications ?Medication ?Instructions ?Recorded ?Confirmed ?Type vitamin with calcium 1 tab PO DAILY 06/24/24 11/02/24 History no.72-iron 27 mg-folic acid 1 mg tablet ( Vitamins Plus Low Iron) ferrous sulfate 325 mg (65 mg 325 mg PO DAILY #30 tabs 08/30/24 11/02/24 Rx iron) tablet labetalol 200 mg tablet 200 mg PO DAILY 11/02/24 11/02/24 History New Prescriptions to Start Prescriptions: Allergies Allergy/AdvReac Type Severity Reaction Status Date / Time No Known Allergies Allergy Verified 10/26/24 10:44 Exam Data for Last 24 hours Vital signs and Labs for Last 24 Hours: Temp Pulse Resp BP Pulse Ox O2 Del Method 98.1 F 88 20 127/76 100 Room Air 11/02/24 14:27 11/02/24 14:27 11/02/24 14:27 11/02/24 14:27 11/02/24 14:27 11/02/24 14:27 Laboratory Results - last 24 hr 11/02/24 13:12: WBC 11.7 H, RBC 3.22 L, Hgb 9.5 L, Hct 28.9 L, MCV 89.8, MCH 29.5, MCHC 32.9, RDW 13.2, Plt Count 219, MPV 10.1, Neut % (Auto) 78.6, Lymph % (Auto) 12.3, Pitt % (Auto) 6.9, Eos % (Auto) 0.9, Baso % (Auto) 0.2, Neut # (Auto) 9.2 H, Lymph # (Auto) 1.4, Pitt # (Auto) 0.8, Eos # (Auto) 0.1, Baso # (Auto) 0.0, Blood Type A Positive, Antibody Screen Negative I & O for Last 24 hours: Intake & Output 10/30/24 10/31/24 11/01/24 11/02/24 23:59 23:59 23:59 23:59 Weight 222 lb Narrative: General: patient is alert oriented in no acute distress and responds appropriately to questions. HEENT: NCAT, EOMI, moist mucous membranes, neck supple with full ROM Cardiovascular: RRR +S1/S2, no murmurs or rubs Pulmonary: Clear to auscultation bilaterally, nonlabored breathing, symmetric chest rise Abdominal: Gravid abdomen appropriate for gestation. No guarding, rebound, or tenderness noted. Extremities: trace edema, no tenderness or cyanosis noted Skin: Normal turgor, intact, warm. Negative for erythema, pallor, petechia, or lesions Neurologic: Negative for sensory or motor deficit Psychiatric: Normal affect, normal thought process, good judgment and insight, no depression or anxious mood appreciated. *Routine HEENT Exam Head: Present normocephalic and atraumatic Eye: Present EOMI, PERRL and normal accommodation; Absent conjunctival icterus, scleral injection, nystagmus or exophthalmos ENT: Present mucous membranes moist *Routine Respiratory Exam Respiratory: Present CTA bilaterally, normal respiratory effort, able to speak in complete sentences and symmetric chest movement; Absent accessory muscle use, decreased breath sounds, rales, respiratory distress, wheezes, distant breath sounds or diminished air movement *Routine Cardiovascular Exam Cardiovascular: Present RRR, Normal S1 and Normal S2; Absent murmur or gallop *Routine Abdominal Exam Abdominal: Present soft and normoactive bowel sounds; Absent tenderness, distended, rebound or guarding *Routine Rectal Exam Rectal:: deferred *Routine Genitalia Exam Genitalia:: normal female Assessment and Plan *Assessment and plan (1) Breech presentation: Status: Acute Qualifiers: Fetus number: single or unspecified fetus Qualified Code(s): O32.1XX0 - Maternal care for breech presentation, not applicable or unspecified Category: Medical Code(s): O32.1XX0 - Maternal care for breech presentation, not applicable or unspecified (2) Anemia affecting : Status: Acute Qualifiers: Trimester: third trimester Qualified Code(s): O99.013 - Anemia complicating , third trimester Category: Medical Code(s): O99.019 - Anemia complicating , unspecified trimester (3) echogenic intracardiac focus on ultrasound: Status: Acute Category: Medical Code(s): O28.3 - Abnormal ultrasonic finding on screening of mother (4) Headache: Status: Acute Qualifiers: Headache type: unspecified Headache chronicity pattern: unspecified pattern Intractability: not intractable Qualified Code(s): R51.9 - Headache, unspecified Category: Medical Code(s): R51.9 - Headache, unspecified (5) History of miscarriage: Problem Comment: x 1 Status: Acute Category: Medical Code(s): Z87.59 - Personal history of other complications of , childbirth and the puerperium (6) Gestational hypertension: Status: Acute Category: Medical Code(s): O13.9 - Gestational [-induced] hypertension without significant proteinuria, unspecified trimester Plan #38 weeks gestation #Gestational hypertension #Possible preeclampsia #Breech presentation - Monitor vitals - Admit to L&D for scheduled delivery - External FHR and TOCO monitor - Bedside ultrasound confirmed breech presentation - Blood type: A+ - Hemoglobin: 9.5, Plt: 219 - Plan for spinal anesthesia - Anticipate delivery of female infant: Meri Sullivan - [facility] labs pending #Anemia -Hemoglobin 9.5 with a normocytic MCV. Likely physiologic anemia . Will follow this closely. Discussed the risk of bleeding, infection injury to the surrounding structures. Patient consented to blood transfusion to medically necessary. Reviewed the rare risk of hysterectomy if bleeding is unable to be controlled. The patient has no allergies and will receive 2g of Ancef preoperatively. Reviewed the risk of injury to surrounding structures including the bowel, bladder, reproductive organs, and neurovascular bundles. discussed risks of VTE, anesthesia and . Discussed that if complication occurred it could prolong surgery, require additional surgeries or require transfer to a tertiary care center. Patient voiced understanding. Patient and significant other voiced understanding desire to proceed
[2024-11-02 17:18] LABS: Cord Blood PH 7.42 (7.35-7.45)
--- NOTE | 2024-11-02 17:49 | P.OP_ITS ---
Date of procedure: 11/02/24 Pre-op Diagnosis:: 1. 38 weeks 0days gestation, Rose 2. Gestational Hypertension with severe range blood pressure 3. Breech presesntation 4. GBS negative 5. Rh Positive Post-op Diagnosis:: 1. 38 weeks 0days gestation, Rose 2. Gestational Hypertension with severe range blood pressure 3. Breech presesntation 4. GBS negative 5. Rh Positive Procedure performed:: Primary Delivery Surgeon:: Claire Barillas DO Chemical Process Engineer(s):: Francesco Scott MD SET MAKING MACHINE OPERATOR:: Edu Martin Anesthesia: spinal Estimated blood loss (mL): 600 Clinical Note:: Socorro means is a 34-year-old G2, P0 who presented to labor and delivery triage yesterday with severe range blood pressures. These responded to labetalol and she was discharged home. She returns today with a persistent headache times the last 2 days and blood pressure elevations at home. She took her labetalol just prior to arrival so her blood pressure was appropriate on admission. Given the gestational hypertension, 38 weeks gestation, and elevated blood pressures decision was made to proceed with delivery. The infant was breech presentation and decision was made to proceed with primary delivery. Patient was counseled on the likely need for repeat delivery and she consented to proceeding Operative findings:: 1. Live viable female : Meri Sullivan. Weight: 8pounds 8ounces. 3856g. Apgars 8 and 9 at 1 and 5 minutes respectively 2. Normal-appearing fallopian tubes and ovaries bilaterally Operative note:: Medications: 2 g of Ancef, 500mg IV Azithromycin Summary: Procedure explained in its entirety. The patient was counseled on the risks and benefits of section including bleeding, vascular injury, infection, and injury to the surrounding structures. Hemorrhage requiring life saving blood transfusion resulting in blood born viral infection or allergic reaction was explained and the patient consented to blood transfusion. Possible need for further operative measures prolonging recovery time and hospitalization reviewed to include hysterectomy. Procedure explained in its entirety and patient had no further questions. Consented to procedure. The patient was taken back to the operating room where adequate spinal anesthesia was obtained. Pneumatic compression stockings applied to lower ext remities. Ancef 2g was given for infection prophylaxis. She was placed in the dorsal supine position Urinary catheter was placed and found to be draining clear urine. The patient was prepped and draped in sterile fashion. Anesthesia was tested and and found to be adequate. A Pfannenstiel skin incision was made with the scalpel. Subcutaneous bleeding vessels were cauterized with the bovie. The incision was taken down to the fascia with the bovie. The fascia was knicked in the midline and sharply extended laterally. The superior aspect of the fascia was grasped with Jaimie clamps and the rectus muscle was taken down with the Bovie. The rectus muscle was sharply dissected from the midline with Mayos. This process was repeated inferiorly. There was slight bleeding between the rectus and fascia inferiorly. The rectus muscles were in the midline, peritoneum was identified and entered bluntly. Gabe O retractor was placed and the bladder was noted to be out of the operative field. A bladder flap was created with Metzenbaum scissors and Bermudian pickups. The lower uterine segment was easily identified, sharply incised, and entered bluntly with the surgeon's index finger. Incision was then extended in a superior and inferior fashion by blunt separation. Membranes were ruptured revealing clear fluid. The fetus was in a david breech presentation. The 's buttocks was elevated out of the hysterotomy. Delivery to the bottom of the shoulder blades was completed and the feet were delivered with Pinard's maneuver. A blue towel was used to rotate the infant's left shoulder anteriorly and it was delivered via left sets. This process was repeated with the contralateral shoulder. With gentle flexion of the chin the infant's head delivered without difficulty. Madhuri polo occurred at 1710. The mouth and nose were suctioned with a bulb. The umbilical cord was clamped and cut after approximately 1 minute of delayed cord clamping. Infant was taken to warmer for evaluation by the steward/stewardess banquet. Cord gases and blood were collected. The placenta was delivered via fundal massage. IV Pitocin was initiated. Inside of the uterus was gently cleared of blood and clots with lap sponge. The hysterotomy was closed with 0 Vicryl in a running locked fashion. The lower uterine segment was visualized and noted to be hemostatic. A second 0 Vicryl was used to place an imbricating stitch and closed the vesicouterine peritoneum. The ovaries and tubes were found to be normal. The posterior aspect of the uterus was cleared of blood clot with a damp lap sponge. The gutters were inspected bilaterally and cleared of blood and clots with lap sponges. The uterine incision was reinspected and hemostasis noted. Gabe O retractor was removed. The peritoneum was reapproximated using a 2-0 Monocryl in a nonlocked running fashion. The fascia was closed in a running nonlocked fashion using 0 Vicryl x2 meeting right of midline. Fascia was noted as not having gaps or defects. The subcutaneous fat was closed with 0 PDS in a running fashion. Skin was closed with the INSORB suture in a subcuticular fashion. Patient tolerated the procedure well and all counts were correct x3, per nursing. Patient will receive tap blocks and then be transported to the OB PACU for recovery and infant bonding. Condition: stable Disposition: floor Specimens:: 1. Live viable female 2. Placenta 3. Cord gases Complications:: None
--- NOTE | 2024-11-02 18:05 | P.PNANES_ITS ---
[facility] Disclaimer: The information contained in this section may have been updated after the patient was seen, as this information can be updated by other users. Medical History Breech presentation Anemia affecting SGA (small for gestational age), , affecting care of mother, antepartum Vomiting affecting Abdominal pain in , antepartum echogenic intracardiac focus on ultrasound Abnormal TSH Abnormal electrocardiogram [ECG] [EKG] Headache Labile blood pressure Constipation during Nausea and vomiting during History of miscarriage x 1 Surgical History History of surgery on arm Family History Other No significant family history Social History Smoking Status: Current some day smoker alcohol intake: never substance use type: denies use current occupational status: employed Travel in the last 8 weeks?: None Have you lived/traveled outside US in past 30 days?: No Contact w/someone who lives/traveled outside US past 30 days?: No Exposure to someone with infectious disease in past 14 days?: No Do you have a fever (greater than 100.4 F or 38 C)?: No Have you tested positive for COVID-19?: No Exposed to someone with COVID-19 in past 14 days?: No Do you have a sore throat?: No Do you have a cough?: No Do you have any weakness?: No Do you have any diarrhea?: No Are you experiencing any unusual bleeding?: No Do you have any muscle aches/pain?: No Do you have any abdominal pain?: No Are you experiencing loss of taste or smell?: No [facility] Anesthesia Checklist Patient Identification Patient Identification: Arm Band Structural Data Admitted From: Inpatient Planned Operative Procedure/s: Primary C/S Consent for Planned Operative Procedure(s) Verified: Yes Verified Documents: Surgical Consent and History and Physical NPO Status Verified Time NPO: 00:00 Additional verifications Anesthesia Reactions: No Hx Blood Transfusions: No Blood Transfusion Reaction: No Airway Assessment Mallampati Score:: Class II C-Spine Mobility Assessed: Yes TMJ Mobility Assessed: Yes Dentition: Good Dentition Neurological Assessment Level of Consciousness: Awake, Alert and Appropriate Anesthesia Plan Anesthesia Risk discussed: Yes Anesthesia Plan: Verified ASA Class: II Anesthesia Type: Spinal (with Bilateral TAP Block)
--- NOTE | 2024-11-02 18:06 | P.PNANES_ITS ---
[facility] Anesthesia Record Part I Anesthesia Record I Intake, IV Amount: 1,000 Hydration: Adequate Estimated blood loss (mL): 5 Urine output (mL): 100 Blood Products used (#): none Blood Pressure: 112/63 SaO2: 99 Pulse Rate: 74 Airway Patency: Patent Respiratory Rate: 16 Temperature: 97.7 F Patient is:: Awake and Stable Stable to PACU at:: 17:55
[2024-11-02 18:14] LABS: Creatinine,Urine Random 61 mg/dL (Not Estab.)
--- NOTE | 2024-11-02 18:20 | SUR.OPER ---
1633- ancef 2g given in Ob at 1533. Additional Azithromycin 500mg ordered per for preop abx.
[2024-11-02 18:43] LABS: Albumin Level 2.7 g/dl (3.5-5.0); Chloride 111 mmol/L (98-107); Sodium 137 mmol/L (136-145)
[2024-11-02 18:44] LABS: Potassium 3.6 mmoL/L (3.5-5.1)
[2024-11-02 18:46] LABS: Alanine Aminotransferase 24 U/L (12-78); Alkaline Phosphatase 100 U/L (38-126); Anion Gap 6.6 mEq/L (5-15); Aspartate Amino Transferase 32 U/L (14-36); Bilirubin,Total 0.2 mg/dl (0.2-1.3); Blood Urea Nitrogen 4 mg/dl (7-17); Carbon Dioxide 23 mmol/L (22.0-30.0); Creatinine Clearance Estimated 315 mL/min (50-200); Estimated Glomerular Filt Rate 183 ml/min (>60); GFR (African American) 221 ML/MIN (>60); Globulin 2.7 g/dL (1.3-3.2); Total Protein,Serum 5.4 g/dl (6.3-8.2)
[2024-11-02 18:47] LABS: Glucose 85 mg/dl (74-100)
[2024-11-02 19:53] LABS: Microscopic,Cath URINE MICROSCOPIC (MICROSCOPIC)
[2024-11-02 19:54] LABS: Appearance,Urine/Cath CLOUDY (Clear); Bilirubin,Cath Negative (Negative); Blood, Urine/Cath 1+ (Negative); Color,Urine/Cath YELLOW (Yellow); Glucose,Urine/Cath (UA) Negative (Negative); Ketones,Urine/Cath Negative (Negative); Leukocyte Esterase,Cath 3+ (Negative); Nitrate,Cath Negative (Negative); PH,Urine/Cath 7.5 (5.0-8.5); Protein,Urine/Cath Negative (Negative); Specific Gravity, Urine/Cath 1.015 (1.005-1.030); Urobilinogen,Cath 0.2 EU/dl (0.2)
[2024-11-02 20:28] LABS: Bacteria,Urine/Cath 3+ /lpf; Squamous Epithelial Ur./Cath 20-50 #/hpf (0-5); WBC,Urine/Cath 20-50 #/hpf (0-3); Yeast,Urine/Cath 4+
[2024-11-02] MEDS: HYDROMORPHONE 2MG/ML SYRINGE 1 MG IV (20:53)
[2024-11-02] MEDS: ACETAMINOPHEN 500MG TAB 1000 MG PO (20:53)
[2024-11-02] MEDS: HYDROMORPHONE 2MG/ML SYRINGE 2 MG IV (22:43)
[2024-11-03 00:25] VITALS: BP 121/69; PULSE 83; RESP 16; TEMP 36.9; O2SAT 97
[2024-11-03] MEDS: ACETAMINOPHEN 500MG TAB 1000 MG PO ×4 (02:10→19:55)
[2024-11-03] MEDS: HYDROMORPHONE 2MG/ML SYRINGE 2 MG IV ×2 (02:11→07:40)
[2024-11-03] MEDS: OXYCODONE 5MG IMMEDIATE RELEASE TABLET 5 MG PO (04:39)
[2024-11-03] MEDS: KETOROLAC 30MG/ML VIAL 30 MG IV ×2 (06:10→11:16)
[2024-11-03 06:15] LABS: Basophils % 0.3 % (0.1-2.0); Eosinophils # 0.2 Kmm3 (0.0-0.4); Eosinophils % 1.5 % (0.1-12.0); Hematocrit 24.7 % (37.0-47.0); Immature Granulocytes # 0.05 10^3uL; Immature Granulocytes % 0.5 %; Lymphocytes # 1.9 K/mm3 (0.7-4.5); Lymphocytes % 17.1 % (10-50); Mean Corpuscular HGB Conc 34.4 g/dL (31.8-35.4); Mean Corpuscular Hemoglobin 30.9 pg (27.0-31.2); Mean Corpuscular Volume 89.8 fl (81-99); Mean Platelet Volume 10.2 fl (7.4-10.4); Monocytes # 0.8 K/mm3 (0.1-1.0); Monocytes % 7.1 % (1.7-9.3); Neutrophils # 8.2 K/mm3 (1.8-7.8); Neutrophils % 73.5 % (37.0-80.0); Nucleated Red Blood Cells # 0 10^3/uL; Nucleated Red Blood Cells % 0 %; Platelet Count 207 K/mm3 (142-424); Red Blood Count 2.75 M/mm3 (4.20-5.40); Red Cell Distribution Width 13.3 % (11.5-17.5); Red Cell Distribution Width-SD 43.8 fL; White Blood Count 11.1 K/mm3 (4.8-10.8)
--- NOTE | 2024-11-03 06:18 | CT_ITS ---
FINAL REPORT TECHNIQUE: CT examination of the abdomen and pelvis was performed pre and post intravenous contrast enhancement using axial images from the lung bases through the pelvis. Multiplanar reconstructions in the sagittal and coronal planes were performed. This study was performed with techniques to keep radiation doses as low as reasonably achievable (ALARA). Individualized dose reduction techniques using automated exposure control or adjustment of mA and/or kV according to the patient's size were employed. CLINICAL HISTORY: Uncontrolled abdominal pain after surgery COMPARISON: None FINDINGS: CT ABDOMEN PELVIS WITH AND WITHOUT CONTRAST: Atelectasis is present in the left lung base. There is extensive fatty infiltration of the liver, as well as hepatomegaly, with the liver measuring 23 cm in the craniocaudal dimension. The spleen is unremarkable. The adrenals are normal. The pancreas is unremarkable. The kidneys enhance appropriately, with a left renal low density measuring 13 mm in diameter, which may represent a renal cyst. Precontrast images demonstrate no nephrolithiasis. The uterus is large, and hypervascular, with a small air-fluid level within the endometrial cavity. Extensive subcutaneous emphysema is noted in the anterior pelvic wall, with several small pockets of free air seen in the upper abdomen as well. The thickening and edema surrounding the anterior abdominal wall may be from a presumed , although clinical history is not available for the type of surgery which was performed. Soft tissue postoperative infection or endometritis are not excluded. A catheter is present in a decompressed bladder. IMPRESSION: The uterus is large and hypervascular with a small air-fluid level in the endometrial cavity. There is extensive subcutaneous edema in the anterior pelvic wall, with pockets of free air seen in the upper abdomen as well as in the subcutaneous soft tissues. These findings may be secondary to a presumed , and soft tissue postoperative infection or endometritis are not excluded. Reviewed, Interpreted and Dictated by Samir Adams MD Transcribed by Sun Soriano Authenticated and [facility]
[2024-11-03 06:19] LABS: Hemoglobin 8.4 g/dL (12.2-16.2)
[2024-11-03 06:30] LABS: Alanine Aminotransferase 18 U/L (12-78); Albumin Level 2.6 g/dl (3.5-5.0); Alkaline Phosphatase 95 U/L (38-126); Anion Gap 4.6 mEq/L (5-15); Aspartate Amino Transferase 28 U/L (14-36); Bilirubin,Total 0.3 mg/dl (0.2-1.3); Blood Urea Nitrogen 5 mg/dl (7-17); Carbon Dioxide 26 mmol/L (22.0-30.0); Chloride 108 mmol/L (98-107); Creatinine Clearance Estimated 252 mL/min (50-200); Estimated Glomerular Filt Rate 141 ml/min (>60); GFR (African American) 171 ML/MIN (>60); Globulin 2.5 g/dL (1.3-3.2); Glucose 81 mg/dl (74-100); Potassium 3.6 mmoL/L (3.5-5.1); Sodium 135 mmol/L (136-145); Total Protein,Serum 5.1 g/dl (6.3-8.2)
[2024-11-03] MEDS: IOPAMIDOL-370 (76%);100ML BOTTLE 75 ML IV (07:13)
[2024-11-03] MEDS: SODIUM CHLORIDE 0.9% 10ML SYR (RAD ONLY) 10 ML IV (07:13)
--- NOTE | 2024-11-03 07:15 | PC.NURSE ---
Pt back from CT scan.
[2024-11-03] MEDS: FERROUS SULFATE 325MG TABLET 325 MG PO (07:39)
[2024-11-03 08:51] LABS: RPR W/RFX Titers Nonreactive (Nonreactive)
[2024-11-03] MEDS: OXYCODONE 5MG IMMEDIATE RELEASE TABLET 10 MG PO ×2 (09:29→13:35)
[2024-11-03] MEDS: SIMETHICONE 80MG CHEWABLE TABLET 160 MG PO ×3 (09:33→21:57)
--- NOTE | 2024-11-03 11:45 | P.PN_ITS ---
Subjective *Date: 11/03/24 *Time: 11:56 Interval history: POD # 1 s/p PLTCS Feeling well. She is complaining of abdominal pain not controlled by medication. Formula feeding. Lochia is appropriate. [place] catheter in place draining clear urine. Not passing flatus yet. Tolerating liquid diet. Denies fever/chills, chest pain and shortness of breath. No headaches, vision changes, lightheadedness/dizziness. She admits to lower extremity swelling. She has not been up ambulating yet. Medical Exam Vital signs and Labs for Last 24 Hours: Vital Signs Temp Pulse Pulse Resp BP BP Pulse Ox 11/03/24 00:25 98.4 F 83 16 121/69 97 11/02/24 20:03 98.3 F 76 19 148/74 H 100 11/02/24 18:25 97.7 F 67 16 122/72 99 11/02/24 18:15 97.7 F 68 16 115/68 99 11/02/24 18:07 97.7 F 74 16 112/63 11/02/24 18:05 97.7 F 70 16 106/69 L 99 11/02/24 17:55 97.7 F 74 16 112/63 99 11/02/24 14:27 98.1 F 88 20 127/76 100 11/02/24 13:27 98.1 F 88 18 127/76 100 O2 Del Method 11/03/24 00:25 Room Air 11/02/24 20:03 Room Air 11/02/24 18:25 Room Air 11/02/24 18:15 Room Air 11/02/24 18:07 11/02/24 18:05 Room Air 11/02/24 17:55 Room Air 11/02/24 14:27 Room Air 11/02/24 13:27 Room Air Intake and Output 11/02/24 11/03/24 11/03/24 23:59 07:59 15:59 Intake Total 1700 / 1700 Output Total 250 / 250 Balance 1450 / 1450 Intake: Intake, Total IV Amount 1700 / 1700 Oxytocin/Ringers Lactate 30 700 / 700 units In 500 ml @ 40 mls/hr IV .[id number] [facility] Rx#:[id number] Output: Output, Urine Amount 250 / 250 Laboratory Results - last 24 hr 11/02/24 11:49: Urine Color Yellow, Urine Appearance Cloudy, Urine pH 7.5, Ur Specific [place] 1.015, Urine Protein Negative, Urine Glucose (UA) Negative, Urine Ketones Negative, Urine Blood 1+, Urine Nitrate Negative, Urine Bilirubin Negative, Urine Urobilinogen 0.2, Ur Leukocyte Esterase 3+ A, Urine RBC 5-10, Urine WBC 20-50 A, Ur Squamous Epith Cells 20-50, Urine Bacteria 3+ A, Urine Yeast 4+, Urine Creatinine 61, Urine Total Protein 16.0 H 11/02/24 13:12: WBC 11.7 H, RBC 3.22 L, Hgb 9.5 L, Hct 28.9 L, MCV 89.8, MCH 29.5, MCHC 32.9, RDW 13.2, Plt Count 219, MPV 10.1, Neut % (Auto) 78.6, Lymph % (Auto) 12.3, [place] % (Auto) 6.9, Eos % (Auto) 0.9, Baso % (Auto) 0.2, Neut # (Auto) 9.2 H, Lymph # (Auto) 1.4, [place] # (Auto) 0.8, Eos # (Auto) 0.1, Baso # (Auto) 0.0, RPR w/Rflx to Titer Nonreactive, Blood Type A Positive, Antibody Screen Negative 11/02/24 17:17: Cord ABG pH 7.42 11/02/24 18:15: Sodium 137, Potassium 3.6, Chloride 111 H, Carbon Dioxide 23, Anion Gap 6.6, BUN 4 L, Creatinine 0.40 L, Estimated Creat Clear 315 H, Estimated GFR 183, Est GFR ( Amer) 221 D, Glucose 85, Calcium 8.0 L, Total Bilirubin 0.2, AST 32, ALT 24, Alkaline Phosphatase 100, Total Protein 5.4 L, Albumin 2.7 L, Globulin 2.7, Albumin/Globulin Ratio 1.0 L 11/03/24 05:50: Sodium 135 L, Potassium 3.6, Chloride 108 H, Carbon Dioxide 26, Anion Gap 4.6 L, BUN 5 L, Creatinine 0.50 L D, Estimated Creat Clear 252, Marcelle mated GFR 141, Est GFR ( Amer) 171 D, Glucose 81, Calcium 8.0 L, Total Bilirubin 0.3, AST 28, ALT 18, Alkaline Phosphatase 95, Total Protein 5.1 L, Albumin 2.6 L, Globulin 2.5, Albumin/Globulin Ratio 1.0 L 11/03/24 05:56: WBC 11.1 H, RBC 2.75 L, Hgb 8.4 L D, Hct 24.7 L, MCV 89.8, MCH 30.9, MCHC 34.4, RDW 13.3, Plt Count 207, MPV 10.2, Neut % (Auto) 73.5, Lymph % (Auto) 17.1, [place] % (Auto) 7.1, Eos % (Auto) 1.5, Baso % (Auto) 0.3, Neut # (Auto) 8.2 H, Lymph # (Auto) 1.9, [place] # (Auto) 0.8, Eos # (Auto) 0.2, Baso # (Auto) 0.0 I & O for Labs for Last 24 Hours: Intake & Output 10/31/24 11/01/24 11/02/24 11/03/24 23:59 23:59 23:59 23:59 Intake Total 1700 / 1700 Output Total 250 / 250 Balance 1450 / 1450 Weight 222 lb Head: Present atraumatic and normocephalic ENT: Present normal exam Neck: Present normal inspection and full ROM Respiratory: Present CTA bilaterally and normal respiratory effort Cardiac: Present Reg Rate and Rhythm GI: Present soft, tenderness (appropriate tenderness to palpation postoperatively) and normal bowel sounds; Absent guarding Comments:: Pfannenstiel incision clean/dry/intact with steri strips in place Rectal (female): Present deferred (female): Present deferred Extremities: Present full ROM and edema (+3 bilateral lower extremity edema); Absent calf tenderness Neuro: Present alert, awake and moves all extremities Assessment and Plan *Assessment and plan (1) S/P : Status: Acute Category: Surgical Code(s): Z98.891 - History of uterine scar from previous surgery (2) Gestational hypertension: Status: Acute Qualifiers: Trimester: third trimester Qualified Code(s): O13.3 - Gestational [-induced] hypertension without significant proteinuria, third trimester Category: Medical Code(s): O13.9 - Gestational [-induced] hypertension without significant proteinuria, unspecified trimester (3) Breech presentation: Status: Acute Qualifiers: Fetus number: single or unspecified fetus Qualified Code(s): O32.1XX0 - Maternal care for breech presentation, not applicable or unspecified Category: Medical Code(s): O32.1XX0 - Maternal care for breech presentation, not applicable or unspecified (4) Anemia affecting : Status: Acute Qualifiers: Trimester: third trimester Qualified Code(s): O99.013 - Anemia complicating , third trimester Category: Medical Code(s): O99.019 - Anemia complicating , unspecified trimester (5) Acute blood loss anemia: Status: Acute Category: Medical Code(s): D62 - Acute posthemorrhagic anemia Plan Continue routine care CT abd/pelvis ordered for uncontrolled pain. CT demonstrated normal postop changes. She has good bowel sounds. Recommended crackers and oxycodone PO. She agrees with trying PO pain medication and food AM Hgb 8.4 (9.5 on admission) - Venofer 200 mg IV x 1 dose ordered Encouraged increased ambulation later today Possible d/c home tomorrow, POD # 2 if pain better controlled
--- NOTE | 2024-11-03 12:06 | P.PNANES_ITS ---
[facility] Anesthesia Record Part II Anesthesia Record Part II Discharge Time: 18:25 Destination: Obstetric PACU nurse assessment reviewed?: Yes Patient Condition:: Good Anesthesia Complications:: None Swallowing reflex intact?: Yes Airway Patency: Patent Cyanosis?: No Blood Pressure: 122/72 SaO2: 99 Respiratory Rate: 16 Pulse Rate: 67 Temperature: 97.7 F Mental Status: Alert & Oriented Pain level:: 0 Nausea and/or vomitting:: None Intake, IV Amount: 0 Hydration: Adequate
[2024-11-03 12:07] VITALS: BP 122/72; PULSE 67; RESP 16; TEMP 36.5; O2SAT 99
[2024-11-03] MEDS: IRON SUCROSE COMPLEX 200 MG in 0.9 % SODIUM CHLORIDE 100 ML 220 MG IV (13:34)
[2024-11-03] MEDS: PRENATAL MULTIVITAMIN W/IRON 1 EACH PO (16:15)
[2024-11-03] MEDS: IBUPROFEN 400 MG TABLET 800 MG PO (16:15)
[2024-11-03] MEDS: HYDROMORPHONE HCL 2 MG TABLET PO ×2 (17:30→21:56)
[2024-11-03] MEDS: SENNA 8.6MG TABLET 8.6 MG PO (21:57)
[2024-11-04] MEDS: IBUPROFEN 400 MG TABLET 800 MG PO ×2 (00:13→06:46)
[2024-11-04] MEDS: HYDROMORPHONE HCL 2 MG TABLET PO ×2 (02:05→06:01)
[2024-11-04] MEDS: ACETAMINOPHEN 500MG TAB 1000 MG PO (02:06)
[2024-11-04] MEDS: SIMETHICONE 80MG CHEWABLE TABLET 160 MG PO (06:46)
--- NOTE | 2024-11-04 09:43 | EXP.DC.SUM ---
General Admission date:: 11/02/24 Discharge date: 11/04/24 HPI HPI HPI: POD # 2 s/p PLTCS Feeling okay. Pain a little better but still not completely controlled with medication. Formula feeding. Lochia is appropriate. Voiding without difficulty and passing flatus. Tolerating regular diet. Denies fever/chills, chest pain and shortness of breath. No headaches, vision changes, lightheadedness/dizziness. She admits to lower extremity swelling. No calf pain. Ambulating well ad beatrice. Hospital Course Hospital Course Hospital Course: Mrs Socorro Barker is a 34yo at who presented to L&D for elevated BP. She has an ELISABETH of 11/16/24, based on first trimester US, giving her a gestational age of 38w0d. Per pt BP in the 170/100s in triage yesterday. She was recently diagnosed with gestational hypertension. Reports a persistent headache for the last 2 days, started at 8pm on 01/31/25. She was evaluated in L&D triage last night and given PO labetalol which her BP initially responded well to but given persistent elevations and the diagnosis of GHTN decision was made to proceed with delivery. Pt reports at home prior to arrival BP 150/90s. She took her labetalol and did not feel well. Infant is breech and pt declined ECV so she was counseled on a primary . relatively uncomplicated until this point, EIF noted on anatomy scan. She underwent primary on 11/02/24. She delivered a live female baby, Meri Sullivan. Weight: 8pounds 8ounces. 3856g. Apgars 8 and 9 at 1 and 5 minutes respectively. EBL 600 mL. She did okay /postoperatively. Pain somewhat controlled on POD # 2. However, she strongly desires to go home. Formula feeding. Light lochia. Voiding without difficulty and passing flatus. Tolerating regular diet. Denies fever/chills, chest pain and shortness of breath. No headaches, dizziness/lightheadedness or vision changes. Vital signs stable, afebrile. Heart regular rate and rhythm. Lungs clear to auscultation. Abdomen soft, nontender. She had +3 bilateral lower extremity swelling. No calf tenderness to palpation. Ambulating well ad beatrice. Normal hospital course. She was discharged to home on POD # 2 with instructions to follow-up in the office in 1 week for BP check or sooner if needed. She was instructed to hold labetalol since delivery. Exam Data for Last 24 hours Vital signs and Labs for Last 24 Hours: Temp Pulse Resp BP Pulse Ox O2 Del Method 98.4 F 83 16 121/69 97 Room Air 11/03/24 00:25 11/03/24 00:25 11/03/24 12:07 11/03/24 00:25 11/03/24 00:25 11/03/24 00:25 I & O for Last 24 hours: Intake & Output 11/01/24 11/02/24 11/03/24 11/04/24 23:59 23:59 23:59 23:59 Intake Total 1700 / 1700 0 / 0 Output Total 250 / 250 500 / 500 Balance 1450 / 1450 -500 / -500 Weight 222 lb Constitutional Constitutional: no acute distress and cooperative *Routine HEENT Exam Head: Present normocephalic and atraumatic Eye: Absent conjunctivae pink ENT: Present mucous membranes moist *Routine Neck Exam Neck: Present full ROM *Routine Respiratory Exam Respiratory: Present CTA bilaterally and normal respiratory effort *Routine Cardiovascular Exam Cardiovascular: Present RRR *Routine Abdominal Exam Abdominal: Present soft, normoactive bowel sounds and tenderness (appropriate postop tenderness to palpation) Comments: Pfannenstiel incision clean/dry/intact with steri strips in place *Routine Rectal Exam Patient deferred: visual exam *Routine Exam Patient deferred: external exam *Routine Extremities Exam Extremities: Present edema (+3 bilateral lower extremity edema) and full ROM; Absent calf tenderness *Routine Neurological Exam Neurological: Present alert, moving all extremities and normal speech Routine Psychiatric Exam Psychiatric: Present normal affect and cooperative DS: Diagnosis Discharge Diagnosis (1) S/P : Status: Acute Code(s): Z98.891 - History of uterine scar from previous surgery (2) Gestational hypertension: Status: Acute Code(s): O13.9 - Gestational [-induced] hypertension without significant proteinuria, unspecified trimester Qualifiers: Trimester: third trimester Qualified Code(s): O13.3 - Gestational [-induced] hypertension without significant proteinuria, third trimester (3) Breech presentation: Status: Acute Code(s): O32.1XX0 - Maternal care for breech presentation, not applicable or unspecified Qualifiers: Fetus number: single or unspecified fetus Qualified Code(s): O32.1XX0 - Maternal care for breech presentation, not applicable or unspecified (4) Anemia affecting : Status: Acute Code(s): O99.019 - Anemia complicating , unspecified trimester Qualifiers: Trimester: third trimester Qualified Code(s): O99.013 - Anemia complicating , third trimester (5) Acute blood loss anemia: Status: Acute Code(s): D62 - Acute posthemorrhagic anemia Meds Home Medications and Allergies Home Medications ?Medication ?Instructions ?Recorded ?Confirmed ?Type ferrous sulfate 325 mg (65 mg 325 mg PO DAILY #30 tabs 08/30/24 11/02/24 Rx iron) tablet ibuprofen 400 mg tablet 800 mg (2 x 400 mg) PO Q8H #40 tabs 11/04/24 Rx oxycodone 5 mg tablet 10 mg (2 x 5 mg) PO Q4-6H PRN 11/04/24 Rx Severe Pain (6-10) #20 tabs New Prescriptions to Start Prescriptions: Janee Aguilar oxycodone Janee Bowling Allergies Allergy/AdvReac Type Severity Reaction Status Date / Time No Known Allergies Allergy Verified 11/03/24 07:05 Discharge Plan Disposition Patient Disposition: Home, Self-Care Condition: Good Discharge Order Discharge Orders: Discharge Order (Routine); Ordered 11/04/24 Ordered By: Janee Bowling Follow up Plan Follow up with: Janee Bowling DO [Staff Physician, WELDING TECHNICIAN] - 11/09/24 2:15 pm Prescriptions/Medication Reconciliation: New ibuprofen 400 mg Tablet 800 mg PO Q8H Qty: 40 0RF oxycodone 5 mg Tablet 10 mg PO Q4-6H PRN (Reason: Severe Pain (6-10)) Qty: 20 0RF Continued ferrous sulfate 325 mg (65 mg iron) tablet 325 mg PO DAILY Qty: 30 3RF Discontinued Vitamin Plus Low Iron 27 mg iron- 1 mg tablet 1 tab PO DAILY Patient Comments: TAKE 1 TABLET BY MOUTH ONCE DAILY. labetalol 200 mg tablet 200 mg PO DAILY Patient Comments: TAKE 1 TABLET BY MOUTH EVERY 12 HOURS. Problem Reconciliation Problems Reviewed?: Yes Patient Discharge Instructions ACTIVITY: Limited activity DIET: continue same diet and regular diet Additional Instructions: Discharge: 1. Take 800 mg Ibuprofen every 8 hours as needed for pain. You can also take 500-1000 mg of Tylenol in between doses, every 6-8 hours. If pain persists you can take Oxycodone 5-10 mg, 1 tablet every 4-6 hours or longer as needed 2. Nothing in the vagina for 6 weeks - no intercourse, douching or tampons. No tub baths/hot tubs or swimming pools - Drink plenty of fluids. - No strenuous activity or driving until released by your doctor. - Don't lift anything heavier than your . 3. Reasons to return to L&D or call On-Call doctor - fever (greater than 100.4) - heavy vaginal bleeding (soaking through 1 pad in less than 2 hours) - vaginal discharge (malodorous and/or purulent) - severe headaches not resolved by medication or rest and leg tenderness/edema 4. depression/blues - Normal to feel anxious/overwhelmed for first 2 weeks - Talk to your doctor if: severe anxiety, trouble bonding with baby, withdrawing from other family members, thoughts of harming yourself or others Patient Instructions: Depression, Hemorrhage, DI for , DI for Pre-eclampsia, [facility] Post Discharge Instructions Print Language: [place] Providers Primary Care Provider: Idania Angeles Admit Provider: Claire Barillas Attending Provider: Claire Barillas
[2024-11-04] MEDS: OXYCODONE 5MG IMMEDIATE RELEASE TABLET 10 MG PO (10:17)
[2024-11-04] MEDS: FERROUS SULFATE 325MG TABLET 325 MG PO (10:17)
== END 2024-11-04 11:15 | disposition home or self-care (01) | DRG 787 ==
LOC: OBOUT 12:17 → OB 12:17
PROVIDERS: Obstetrics & Gynecology; Admitting Provider Obstetrics & Gynecology; PCP Nurse Practitioner; Visit Provider Obstetrics & Gynecology
PROC: 10D00Z1 Extraction of Products of Conception, Low, Open Approach (ICD-10-PCS; CPT 59514; principal; 2024-11-02 16:30)
DX: O64.1XX0 Obstructed labor due to breech presentation, not applicable or unspecified (principal); D62 Acute posthemorrhagic anemia; Z3A.38 38 weeks gestation of pregnancy; Z37.0 Single live birth; O13.4 Gestational [pregnancy-induced] hypertension without significant proteinuria, complicating childbirth; O99.02 Anemia complicating childbirth; R51.9 Headache, unspecified
CPT/HCPCS: 36415; 51702; 59025; 74178; 80053; 81001; 82570; 82800; 84156; 85025; 86592; 86850; 87086; 94761; G0283; J0666; J1171; J1756; J1885; J3010; J7120; Q9967

== ENCOUNTER 2024-11-23 13:00 | Outpatient (CLI) | payer MEDICAID, SELFPAY ==
--- NOTE | 2024-11-23 13:00 | US_ITS ---
PROCEDURE: US TRANSVAGINAL CLINICAL INDICATION: AUB COMPARISON: US US TRANSVAGINAL from 01/19/[address] ABDOMEN PELVIS WO/W CON from 11/03/2024 FINDINGS: Transvaginal sonographic images of the pelvis were obtained. UTERUS: 10.0cm x 7.6 cmx 6.0cm anteverted with a combined endometrial thickness of 6.8mm. The endometrium is difficult to differentiate and there appears to be a small amount of fluid within the endometrial cavity. A scar is present. LEFT OVARY: Not visualized. RIGHT OVARY: 4.0cmx 2.3cmx1.9 cm with a volume of 9.2ml. There are multiple peripheral follicles consistent with a polycystic ovary. The right ovary is seen and appears polycystic. Doppler flow to the right ovary is seen. There is trace fluid in the cul-de-sac. IMPRESSION: 1. Anteverted, enlarged uterus. The endometrium is in and difficult to differentiate. There appears to be a small amount of fluid within the endometrial cavity. A scar is noted and a suture line is still present. 2. The right ovary is seen and appears polycystic. The left ovary is not visualized. 3. There is a trace amount of fluid in the cul-de-sac. Dictated by: Francesco Scott MD 11/23/2024 16:00 Francesco Scott MD in OV 11/23/2024 16:00
== END 2024-11-23 23:59 | disposition home or self-care (01) ==
LOC: RAD 13:01
PROVIDERS: PCP Obstetrics & Gynecology; Visit Provider Obstetrics & Gynecology
DX: O72.2 Delayed and secondary postpartum hemorrhage (principal); O90.89 Other complications of the puerperium, not elsewhere classified; O34.219 Maternal care for unspecified type scar from previous cesarean delivery; N85.8 Other specified noninflammatory disorders of uterus; E28.2 Polycystic ovarian syndrome
CPT/HCPCS: 76830